=== PATIENT | female | born 1975 | race Caucasian/White ===

== ENCOUNTER 2023-07-17 18:50 | Emergency (ER) | payer OTHER, SELFPAY ==
[2023-07-17 18:59] VITALS: BP 163/90; PULSE 129; RESP 24; TEMP 37.2; O2SAT 98; BMI 34.9
--- NOTE | 2023-07-17 19:04 | XR_ITS ---
The [address] [address] Patient Name: LILIANA HUGHES MRN: [id number] date: 1975 Sex: F Assigned Patient Location: ER Current Patient Location: ER Accession/Order Number: [id number] Exam Date: 07/17/2023 19:30 Report Date: 07/17/2023 19:57 At the request of: RODNEY BULLOCK Procedure: XR femur LT 2V 4 views of the left femur INDICATION: Dog bite COMPARISON: None XR/XR femur LT 2V IMPRESSION: No acute fracture or dislocation. No periosteal reaction or erosive change. No radiopaque foreign bodies. Soft tissue swelling and subcutaneous emphysema along the posterior medial aspect of the mid to distal thigh in keeping with history of dog bite. Partially visualized regional joints are intact. Electronically authenticated by: ERICA MCCRAY Date: 07/17/2023 19:57
--- NOTE | 2023-07-17 19:06 | ED.ANIMALBI1 ---
HPI - Animal Bite General Chief Complaint: Animal Bite Stated Complaint: Dog Bite Time Seen by Provider: 07/17/23 19:00 Source: patient Mode of arrival: walk-in Limitations: no limitations History of Present Illness HPI narrative: Patient is a 48-year-old female Who presents to the emergency department Her dog bite to the left thigh. She states she was cleaning her daughter's room when her daughter's dog bit her on the medial/posterior thigh. She is ambulatory but has significant pain with movement of the left leg. Unknown last tetanus. She is not concerned for . No medications taken prior to arrival. Related Data Previous Rx's Medication Instructions Recorded amoxicillin 875 mg-potassium 1 tab PO Q12H #20 tabs 07/17/23 clavulanate 125 mg tablet ondansetron 4 mg disintegrating 4 mg PO Q6H PRN nausea and 07/17/23 tablet vomiting #12 tabs oxycodone-acetaminophen 5 mg-325 1 tab PO Q6H PRN pain 4 days #15 07/17/23 mg tablet (Percocet) tabs Allergies Allergy/AdvReac Type Severity Reaction Status Date / Time acetaminophen [From Vicodin] Allergy Severe Palpitation Verified 07/17/23 18:56 s hydrocodone [From Vicodin] Allergy Severe Palpitation Verified 07/17/23 18:56 s morphine Allergy Severe itchy Verified 07/17/23 18:56 Review of Systems ROS Constitutional Denies: fever or chills Ears, nose, mouth, and throat Denies: throat pain or nasal congestion Cardiovascular Denies: chest pain Respiratory Denies: shortness of breath or cough Gastrointestinal Denies: nausea or vomiting Musculoskeletal Reports: extremity pain and extremity swelling; Denies: back pain or neck pain Integumentary/Breast Denies: rash Hematologic/Lymphatic Denies: easy bruising or easy bleeding PFSH PFSH Social History Smoking status: Never smoker Exam Narrative Exam Narrative: Gen.: Awake, alert, in no distress Head: Normocephalic, atraumatic ENT: Moist mucous membranes Respiratory: No respiratory distress Extremities: Moves extremities equally, Dog bite as described below Psych: Normal mood and affect Neuro: No focal neuro deficit Skin: Warm, dry; Psoriatic rash noted to multiple extremities. Patient with a large dog bite to the left medial and posterior thigh. Multiple puncture wounds are noted medially. 2 larger lacerations noted posteriorly. Ecchymosis and hematoma noted to the medial thigh. Patient with 2+ DP pulses bilaterally. The area is diffusely tender to palpation on the thigh. She is able to flex and extend at the left hip and left knee. Constitutional Vital Signs, click to edit/add: Last Vital Signs Temp 99 F 07/17/23 18:59 Pulse 89 07/17/23 21:12 Resp 16 07/17/23 21:12 BP 163/90 H 07/17/23 18:59 Pulse Ox 97 07/17/23 21:12 O2 Del Method Room Air 07/17/23 21:12 Course Vital Signs Vital signs: Vital Signs Temperature 99 F 07/17/23 18:59 Pulse Rate 129 H 07/17/23 18:59 Respiratory Rate 24 07/17/23 18:59 Blood Pressure 163/90 H 07/17/23 18:59 Pulse Oximetry 98 07/17/23 18:59 Oxygen Delivery Method Room Air 07/17/23 18:59 Temperature 99 F 07/17/23 18:59 Pulse Rate 89 07/17/23 21:12 Respiratory Rate 16 07/17/23 21:12 Blood Pressure 163/90 H 07/17/23 18:59 Pulse Oximetry 97 07/17/23 21:12 Oxygen Delivery Method Room Air 07/17/23 21:12 MDM - Animal Bite MDM Narrative Medical decision making narrative: Patient treated with intramuscular Dilaudid and oral Zofran as well as Augmentin. Her tetanus was updated in the ER. Femur x-rays with no evidence of bony involvement or retained foreign body.Multiple puncture wounds diffusely over the medial and posterior thigh. The areas were cleansed, dressed with bacitracin and 2 lacerations to the posterior thigh were sutured. Please see procedure note for details. Patient with a hematoma noted to the left thigh. I strongly encouraged her to follow-up with orthopedics for reevaluation of the puncture wounds and the sutures. Patient was given an appointment with Dr. Poole for Saturday for orthopedics. She is referred to primary care as well. Augmentin, Percocet given for home. Laceration repair: Done under sterile conditions. The use of Shur-Clens prep the area. Local injection with lidocaine 1% with epi was used, approximately 12 cc. Each wound was irrigated copiously with normal saline. The wound was explored there was no evidence of foreign material. The laceration was approximated with 3-0 nylon. 3 simple interrupted sutures were made in the 2 cm smaller, proximal laceration and 5 simple interrupted sutures with 1 horizontal mattress suture were placed in the inferior laceration Patient tolerated the procedure well. The patient was neurovascularly intact post. the patient had bacitracin applied to the laceration and a dry sterile dressing was place. The patient will need to follow-up in the next 10-12 days for removal Medical Records Attestation: I reviewed the patient's medical records. Imaging Data XR femur: Attestation: I have reviewed the pertinent imaging results. Radiologist's impression: ITS Impressions Femur X-Ray 07/17/23 19:04 IMPRESSION: No acute fracture or dislocation. No periosteal reaction or erosive change. No radiopaque foreign bodies. Soft tissue swelling and subcutaneous emphysema along the posterior medial aspect of the mid to distal thigh in keeping with history of dog bite. Partially visualized regional joints are intact. Electronically authenticated by: ERICA MCCRAY Date: 07/17/2023 19:57 Discharge Plan Discharge Chief Complaint: Animal Bite Clinical Impression: Dog bite Patient Disposition: Home, Self-Care Time of Disposition Decision: 20:36 Condition: Good Prescriptions / Home Meds: New oxycodone-acetaminophen [Percocet] 5-325 mg tablet 1 tab PO Q6H PRN (Reason: pain) 4 Days Qty: 15 0RF Rx Instructions: DX: S81.852A amoxicillin-pot clavulanate 875-125 mg tablet 1 tab PO Q12H Qty: 20 0RF ondansetron 4 mg tablet,disintegrating 4 mg PO Q6H PRN (Reason: nausea and vomiting) Qty: 12 0RF Instructions: Animal Bite (ED) Additional Instructions: Sutures removed in 10-12 days Stand Alone Forms: Portal Instructions Referrals: Physician,Non-Staff, [Primary Care Provider] - 1 week Cy Poole MD [Physician] - 07/22/23 9:00 am Discharge Date/Time: 07/17/23 21:05
[2023-07-17] MEDS: ONDANSETRON 4 MG RAPDIS TABLET SL (19:24)
[2023-07-17] MEDS: HYDROMORPHONE HCL 1 MG/ML CARTRIDGE IM (19:25)
[2023-07-17] MEDS: ADACEL DIPH,PERTUSS(ACELL),TET VAC/PF 0.5 ML ADULT SYRINGE IM (19:29)
[2023-07-17] MEDS: AMOXICILLIN/POTASSIUM CLAV 1 TAB TABLET PO (19:30)
[2023-07-17] MEDS: LIDOCAINE HCL 1%-EPINEPHRINE 1:100,000 20 ML MDV INJ (19:53)
[2023-07-17] MEDS: BACITRACIN OINTMENT 28.4 GM TUBE 1 APPLIC TOPICAL (19:53)
[2023-07-17] MEDS: OXYCODONE HCL/ACETAMINOPHEN 5MG/325MG 3 TAB PO (20:59)
[2023-07-17 21:12] VITALS: PULSE 89; RESP 16; O2SAT 97
== END 2023-07-17 21:05 | disposition home or self-care (01) ==
PROVIDERS: Emergency Provider Emergency Medicine
DX: S71.152A Open bite, left thigh, initial encounter (principal); W54.0XXA Bitten by dog, initial encounter; Z23 Encounter for immunization
CPT/HCPCS: 12002; 73552; 90471; 90715; 96372; 99284; J1170

== ENCOUNTER 2023-07-30 09:48 | Outpatient (OUT) | payer OTHER, SELFPAY ==
[2023-07-30 10:15] LABS: Basophils Absolute Auto 0.1 10^3/uL (0.0-0.1); Basophils Percent Auto 0.7 % (0.2-2.0); Eosinophils Absolute Auto 0.1 10^3/uL (0.0-0.7); Eosinophils Percent Auto 0.8 % (0.9-7.0); Hemoglobin 13.5 g/dL (12.0-16.0); Immature Granulocytes Abs Auto 0.03 10^3/uL (0.00-0.03); Immature Granulocytes Pct Auto 0.3 % (0.0-0.5); Lymphocytes Absolute Auto 2.8 10^3/uL (1.2-3.8); Lymphocytes Percent Auto 29.8 % (20.5-60.0); Mean Corpuscular HGB Conc 32.1 g/dL (29.9-35.2); Mean Corpuscular Hemoglobin 30.3 pg (26.7-34.0); Mean Corpuscular Volume 94.2 fL (81.0-99.0); Mean Platelet Volume 9.6 fL (9.5-13.5); Monocytes Absolute Auto 0.8 10^3/uL (0.3-0.8); Monocytes Percent Auto 8.3 % (1.7-12.0); Neutrophils Absolute Auto 5.7 10^3/uL (1.4-6.5); Neutrophils Percent Auto 60.1 % (43.0-75.0); Platelet Count 382 10^3/uL (150-450); Red Blood Count 4.46 10^6/uL (4.20-5.40); Red Cell Distribution Width 13.6 % (11.0-15.0); White Blood Count 9.5 10^3/uL (4.0-11.0)
[2023-07-30 10:27] LABS: Alanine Aminotransferase 25 U/L (14-59); Albumin Globulin Ratio 0.9; Albumin Level 3.8 g/dL (3.4-5.0); Alkaline Phosphatase 98 U/L (46-116); Anion Gap 17.8; Aspartate Amino Transferase 11 U/L (15-37); BUN Creatinine Ratio 22.5; Bilirubin Total 0.3 mg/dL (0.2-1.0); Calcium 9.2 mg/dL (8.5-10.1); Carbon Dioxide 21.2 mmol/L (21.0-32.0); Chloride 106 mmol/L (98-107); Chol HDL Ratio 5.8; Cholesterol 234 mg/dL (<=200); Estimated GFR (African America >60 (>=60); Estimated GFR (Non-African Ame >60 (>=60); Globulin 4.1 g/dL; Glucose 101 mg/dL (74-106); HDL Cholesterol 40 mg/dL (40-60); Sodium 141 mmol/L (136-145); Total Protein 7.9 g/dL (6.4-8.2); Triglycerides 159 mg/dL (<=150); VLDL CHOLESTEROL 31.8 mg/dL
[2023-08-01 07:09] LABS: QuantiFERON-TB Gold Plus Negative (Negative)
== END 2023-07-30 09:49 | disposition home or self-care (01) ==
LOC: LAB 09:50
DX: Z79.899 Other long term (current) drug therapy (principal); L40.0 Psoriasis vulgaris
CPT/HCPCS: 36415; 80053; 80061; 85025; 86480

== ENCOUNTER 2023-08-13 15:59 | Outpatient (OUT) | payer OTHER, SELFPAY ==
--- NOTE | 2023-08-13 16:01 | US_ITS ---
The [address] [address] Patient Name: LILIANA HUGHES MRN: [id number] date: 1975 Sex: F Assigned Patient Location: US Current Patient Location: Accession/Order Number: [id number] Exam Date: 08/13/2023 16:07 Report Date: 08/14/2023 06:28 At the request of: IVANA BOSS Procedure: US venous doppler LE LT EXAMINATION: US venous doppler LE LT HISTORY: left leg swelling M79.89 COMPARISON: No relevant comparison available. FINDINGS: REGION: Left lower extremity THROMBI: None. COMPRESSIBILITY: Normal compressibility. FLOW: Normal waveform and antegrade flow between 5 and 20 cm/s. OTHER: Irregular geographic shaped fluid collection within distal medial thigh, 5.9 x 1.7 x 6.2 cm, without appreciable thickened mayberry or surrounding hypervascularity. US/US venous doppler LE LT IMPRESSION: 1. No deep vein thrombus within the left lower extremity. 2. Irregular fluid collection corresponding to patient's area of swelling. Appearance favors seroma or old hematoma. Abscess is less likely given the lack of thickened wall and lack of increased blood flow. Electronically authenticated by: IVANA HADLEY Date: 08/14/2023 06:28
== END 2023-08-13 16:00 | disposition home or self-care (01) ==
LOC: US 15:59
PROVIDERS: Visit Provider Orthopaedic Surgery
DX: M79.89 Other specified soft tissue disorders (principal)
CPT/HCPCS: 93971

== ENCOUNTER 2023-09-09 15:38 | Outpatient (OUT) | payer OTHER, SELFPAY ==
--- NOTE | 2023-09-09 15:41 | MR_ITS ---
[address] [address] Patient Name: LILIANA HUGHES MRN: [id number] date: 1975 Sex: F Assigned Patient Location: MRI Current Patient Location: MRI Accession/Order Number: [id number] Exam Date: 09/09/2023 15:50 Report Date: 09/09/2023 16:45 At the request of: SHAIKH SRAVANI Procedure: MR head/brain wo con MR head/brain wo con HISTORY: Chronic migraine with aura and status migrainosus G43.E01 COMPARISON: None. TECHNIQUE: Multi-planar, multi-sequence brain MRI was performed without IV contrast. FINDINGS: Brain volume: Normal. Sagittal midline structures: Normal. Ventricles: Normal. Acute ischemic changes: None. Hemorrhage: None. Masses/edema: None. Mcdonough-white: Negative. White matter: Normal. Vessels: Normal. Extra-axial: None. Calvarium/scalp: Negative. Skull base: Negative. Visualized sinuses/orbits: Negative. Visualized upper neck: Negative. MR/MR head/brain wo con IMPRESSION: 1. Normal examination. Electronically authenticated by: MARCIA LAURENT Date: 09/09/2023 16:45
== END 2023-09-09 15:39 | disposition home or self-care (01) ==
LOC: MRI 15:38
PROVIDERS: Visit Provider Internal Medicine
DX: G43.E01 Chronic migraine with aura, not intractable, with status migrainosus (principal)
CPT/HCPCS: 70551

== ENCOUNTER 2024-01-29 20:57 | Outpatient (REF) | payer OTHER, SELFPAY ==
--- OUTSIDE RECORDS SUMMARY | 2024-01-29 21:01 | XMS_ITS | CCD ---
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 technique was used, including Automated Exposure Control. FINDINGS: LUNG BASES: No visible pulmonary or pleural disease. LIVER: No enlargement, atrophy, abnormal density, or significant focal lesion. BILIARY: Surgical clips from cholecystectomy PANCREAS: No lesion, fluid collection, ductal dilatation, or atrophy. SPLEEN: No enlargement or focal lesion. ADRENALS: No mass or enlargement. KIDNEYS: No mass, obstruction, or calcification. BOWEL/MESENTERY: Surgical clips in the cecum from prior cholecystectomy. Nonobstructive bowel gas pattern. AORTA/VASCULAR: No aortic aneurysm or dissection. Mild atherosclerosis RETROPERITONEUM: No mass or adenopathy. LYMPH NODES: No adenopathy. URINARY BLADDER: No visible focal wall thickening, lesion, or calculus. PELVIC ORGANS: Hysterectomy ABDOMINAL WALL: 3.5 x 1.2 cm midline ventral hernia axial image 63 containing fat without strangulation BONES: No bony lesion or fracture. OTHER: Negative. IMPRESSION: No acute abnormality Electronically authenticated by: NELLY GUZMAN Date: 2022-05-04 15:54 Normal [facility] CBC With Platelet and Differ entialon 08-31-2017 Basophils Auto #/vol (Bld) 0.1 10*3/uL Normal 0.0-0.2 [facility] Basophils/100 WBC Auto (Bld) 1.3 % Normal [facility] Eosinophils 0.2 10*3/uL Normal 0.0-0.7 [facility] Eosinophils/100 leukocytes 2.1 % Normal [facility] Erythrocyte distribution width Auto Ratio (RBC) 13.8 % Normal 11.5-14.5 [facility] Erythrocytes (RBC) 4.60 10*6/uL Normal 4.20-5.40 [facility] Hematocrit (HCT) 42.1 % Normal 37.0-47.0 [facility] Hemoglobin mass conc (Bld) 14.5 g/dL Normal 12.0-16.0 [facility] Lymphocytes 4.4 10*3/uL Normal 1.0-4.8 [facility] Lymphocytes/100 leukocytes 39.8 % Normal [facility] MCH 31.5 pg Critically high 27.0-31.3 [facility] MCHC mass conc (RBC) 34.5 % Normal 33.0-37.0 [facility] MCV 91.5 fL Normal 82.0-100.0 [facility] Monocytes 0.9 10*3/uL Critically high 0.2-0.8 [facility] Monocytes/100 leukocytes 8.3 % Normal [facility] Neutrophils 5.3 10*3/uL Normal 1.4-6.5 [facility] Neutrophils/100 leukocytes 48.5 % Normal [facility] Platelets 314 10*3/uL Normal 130-400 [facility] WBC (Leukocytes) 11.0 10*3/uL Critically high 4.8-10.8 [facility] CT KIDNEY WO CONTRASTon 08-18 CT KIDNEY WO CONTRAST CT of the kidneys without intravenous contrast mediumHistory: Right left-sided nephrolithiasisTechnical Factors:CT imaging of the abdomen and pelvis were obtained and formatted as 5 mm contiguous axial images from the domes of the diaphragm to the symphysis pubis. Sagittal and coronal reconstructions were also obtained.Oral contrast medium: None.Intravenous contrast medium: None.Comparison: None.Findings:Lungs: Lung bases are clear.Liver: Normal in size and shape. 2.0 x 1.4 cm area of rounded decreased attenuation found anteriorly within the lateral segment of the left hepatic lobe, with Hounsfield measurement of 1.Bile Ducts: Normal in caliber. Gallbladder: Surgically absent.. Pancreas: Normal without masses, cysts, ductal dilatation or calcification. Spleen: Normal in size without masses. Punctate calcification. 2 splenules measuring up to 1.5 cm in size.Kidneys: Normal in size.. No hydronephrosis, masses, or stones. Adrenals: Normal. Small bowel: Normal in caliber. Appendix: Surgically absent.Colon: Normal in caliber. Peritoneum: No ascites, free air, or fluid collections. Surgical clips identified at level of proximal descending colon, and anteriorly within pelvis.Vessels: Aorta normal in course and caliber. Portal vein, splenic vein, superior mesenteric vein are patent. Lymph nodes: Retroperitoneal: No enlarged retroperitoneal lymph nodes. Mesenteric: No enlarged mesenteric lymph nodes. Pelvic: No enlarged pelvic lymph nodes. Ureters: Normal in course and caliber. No calcifications. Bladder: Partially decompressed.Reproductive organs: Uterus surgically absent.. Abdominal Wall: 2.4 cm fat-containing periumbilical abdominal wall defect.Bones: No bone lesions. Mild disc space narrowing L5-S1.No post operative changes. IMPRESSION: No renal/ureteral calculi. No hydronephrosis/hydroureter.Le ft hepatic cyst.Cholecystectomy.Appendec garcia.Hysterectomy.Periumbilic al hernia.All CT scans at this facility use dose modulation, iterative reconstruction, and/or weight based dosing when appropriate to reduce radiation dose to as low as reasonably achievable.Interpreted by:LAURA Merlosigned by:Sonny Tobar MD09/01/18Final result Normal [facility] Comprehensive Metabolic Pane binh 08-31-2017 Alanine aminotransferase (ALT) 14 U/L Normal 0-33 [facility] Albumin 4.6 g/dL Normal 3.9-4.9 [facility] Alkaline phosphatase (ALP) 109 U/L Normal 40-130 [facility] Anion gap 16 mmol/L Critically high 7-13 [facility] Aspartate aminotransferase (AST) 13 U/L Normal 0-35 [facility] Bilirubin (total) 0.1 mg/dL Normal 0.0-1.2 [facility] Calcium 8.9 mg/dL Normal 8.6-10.2 [facility] Chloride 101 mmol/L Normal 98-107 [facility] CO2 22 mmol/L Normal 22-29 [facility] Creatinine 0.67 mg/dL Normal 0.50-0.90 [facility] eGFR (black) mL/min/{1.73_m2} Normal >60 [facility] Comment on above: Result Comment: >60 mL/min/1.73m2 EGFR, calc. for ages 18 and older using theMDRD formula (not corrected for weight), is valid for stablerenal function. eGFR (MDRD) mL/min/{1.73_m2} Normal >60 [facility] Comment on above: Result Comment: >60 mL/min/1.73m2 EGFR, calc. for ages 18 and older using theMDRD formula (not corrected for weight), is valid for stablerenal function. Globulin 2.4 g/dL Normal 2.3-3.5 [facility] Glucose mass conc 115 mg/dL Critically high 74-109 [facility] Potassium molar conc 3.9 mmol/L Normal 3.5-5.1 [facility] Protein 7.0 g/dL Normal 6.4-8.1 [facility] Sodium 139 mmol/L Normal 132-144 [facility] Urea nitrogen 14 mg/dL Normal 6-20 [facility] Culture, Urineon 08-31-2017 Culture, Urine OR DERED BY: TAMMY BOWERS: Urine Clean Catch COLLECTED: 08/31/17 20:15ANTIBIOTICS AT LEANNA.: RECEIVED : 08/31/17 21:36Culture, Urine FINAL 09/02/17 09:18 No growth 24 hours Normal [facility] Urinalysis, reflex to cultur janie 08-31-2017 Bilirubin Ql (U) SMALL Abnormal Negative [facility] Urine Reflexed to Culture YES Normal [facility] Urine, clarity Clear Normal Clear [facility] Urine, color DENISE Abnormal Straw/[place] [facility] Urine, glucose presence Negative Normal Negative [facility] Urine, hemoglobin presence MODERATE Abnormal Negative [facility] Urine, ketones presence Negative Normal Negative [facility] Urine, leukocyte esterase presence Negative Normal Negative [facility] Urine, nitrite presence Negative Normal Negative [facility] Urine, pH 5.0 [pH] Normal 5.0-9.0 [facility] Urine, protein presence Negative Normal Negative [facility] Urine, specific gravity 1.034 Normal 1.005-1.03 [facility] Urine, urobilinogen 0.2 {Megan'U}/dL Normal < 2.0 [facility] Urine Microscopicon 09-01-19 18 Urine Mucous Present Normal [facility] Urine, bacteria in sediment Few Normal [facility] Urine, crystals in sediment Few Ca Oxalate Normal [facility] Urine, epithelial cells presence in sediment Few Normal [facility] Urine, erythrocytes 6-10 Normal 0-2 [facility] Urine, leukocytes 3-5 Normal 0-5 [facility] Encounters Encounter Date Encounter Type Care Provider Facility Start: 10-16-2023 End: 10-16-2023 ambulatory SHAIKH SRAVANI Not Available Start: 09-16-2023 End: 09-16-2023 ambulatory GIMENEZ FAWDANNIED Not Available Start: 09-02-2023 End: 04-15-2024 ambulatory GIMENEZ FAWWAD Not Available Start: 03-19-2023 End: 03-20-2023 ambulatory Roger Garcia [facility] Start: 01-07-2023 End: 01-07-2023 Emergency department patient visit NITIN ELIZABETH [facility] Start: 12-07-2022 End: 12-08-2022 ambulatory Roger Garcia Facility[facility] [place] [facility] Start: 08-06-2022 ambulatory Roger Garcia Facility:[facility] [place] Start: 07-25-2022 End: 07-26-[address] DOCTOR PINEDA Facility:[facility] Start: 05-15-2022 End: 05-15-[address] DUSTIN HERNANDEZ . Facility:[facility] Start: 05-04-2022 End: 05-05-[address] DUSTIN HERNANDEZ . Facility:[facility] Start: 12-08-[address] DUSTIN HERNANDEZ . Facil ity:[facility] Start: 08-31-2017 End: 09-01-2017 Emergency department patient visit SENA BOWERS [facility] Procedures Date Procedure Procedure Detail Performing Clinician Start: 09-01-2017 Ct abdomen w/o contr ast material SENA BOWERS Start: 08-31-2017 CBC WITH AUTO DIFFERENTIAL SENA BOWERS Start: 08-31-2017 COMPREHENSIVE METABOLIC PANEL SENA BOWERS Start: 08-31-2017 Microscopic urinalysis SENA BOWERS Start: 08-31-2017 URINE CULTURE SENA MACIAS RCHALL Start: 08-31-2017 URINE RT REFLEX TO CULTURE SENA BOWERS Payers Date Payer Category Payer Unknown [id number] 2.16.84 [id number] 1977 Unknown [id number] 2..84 [id number] 1977 Unknown [id number] .16.84 [id number] 1977 Unknown [id number] 2.16.84 [id number] 1977 Unknown [id number] 2.16.84 [id number] 1977 Unknown [id number] 2.16.8 [id number] 1977 Unknown [id number] 2.16.8 [id number] 1977 Unknown [id number] 2.16.8 [id number] 1977 Unknown [id number] 2.16.84 [id number] 1977 Unknown [id number] 2.16.84 [id number] 1977 Unknown [id number] 2.16.84 [id number] 1959 Self-pay [id number] 1957 Unknown [id number] Summary Purpose Family History No Family History Records FoundNo Family History Records FoundNo Family History Records FoundNo Family History Records FoundNo Family History Records Found Advance Directives No Advanced Directives Records FoundNo Advanced Directives Records FoundNo Advanced Directives Records FoundNo Advanced Directives Records FoundNo Advanced Directives Records Found Additional Source Comments INFORMATION SOURCE (unrecogn ized section and content) DATE CREATED AUTHOR 11/07/2017 [facility] DATE CREATED AUTHOR AUTHOR'S ORGANIZ ATION 07/28/2022 [facility] DATE CREATED AUTHOR AUTHOR'S ORGANIZ ATION 01/08/2023 [facility] DATE CREATED AUTHOR AUTHOR'S ORGANIZ ATION 03/22/2023 [facility] DATE CREATED AUTHOR AUTHOR'S ORGANIZ ATION 10/17/2023 [facility] EPIC FOR RECORDS PERTAINING TO PATIENTS WHO ARE OR HAVE BEEN ENROLLED IN A CHEMICAL DEPENDENCY/SUBSTANCEABUSE PROGRAM, SOME INFORMATION MAY BE OMITTED. This clinical summary was aggregated from multiple sources. Caution should be exercised in using it in the provision of clinical care. This summary normalizes information from multiple sources, and as a consequence, information in this document may materially change the coding, format and clinical context of patient data. In addition, data may be omitted in some cases. CLINICAL DECISIONS SHOULD BE BASED ON THE PRIMARY CLINICAL RECORDS. [facility] [employer] [facility] provides no warranty or guarantee of the accuracy or completeness of information in this document.
== END 2024-01-29 20:58 | disposition home or self-care (01) ==
LOC: LAB 20:57
DX: Z79.899 Other long term (current) drug therapy (principal)
CPT/HCPCS: 80326; 80331; 80334; 80337; 80338; 80341; 80344; 80346; 80348; 80353; 80354; 80355; 80357; 80358; 80359; 80360; 80361; 80364; 80365; 80366; 80367; 80368; 80370; 80371; 80372; 80373; 80377; 82570; 83992

== ENCOUNTER 2024-06-29 16:57 | Emergency (ER) | payer OTHER, SELFPAY ==
[2024-06-29 17:05] VITALS: PULSE 87; TEMP 36.6; O2SAT 96; BMI 28.3
--- OUTSIDE RECORDS SUMMARY | 2024-06-29 17:15 | XMS_ITS | CCD ---
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 Role Phone SENA BOWERS Unavailable Unavailable [...] LASSITER Attending Unavailable SHAIKH LASSITER Attending Unavailable MYRNA WOOTEN Attending UnavailClint England MD Primary Care Provider Myrna Wooten NP Unavailable Allergies Allergy Classification Reported Allergen(s) Allergy Type Date of Onset Reaction(s) Facility (2 sources) Acetaminophen / HYDROcodone; Translations: [Vicodin] Drug Allergy 3 The [facility] Repository (1 source) Amoxicillin; Translations: [amoxicillin] Drug Allergy [facility] Repository (1 source) Methocarbamol; Translations: [Robaxin] Drug Allergy [facility] Repository (5 sources) Morphine; Translations: [morphine] Drug Allergy 8 Itching, Nausea And Vomiting, Rash [facility] Repository (4 sources) Acetaminophen / HYDROcodone Drug Allergy 4 Rash [facility] Work Phone: Medications Current Medications Medication Drug Class(es) Dates Sig (Normalized) Sig (Original) amphetamine aspartate 3.75 mg / amphetamine sulfate 3.75 mg / dextroamphetamine saccharate 3.75 mg / dextroamphetamine sulfate 3.75 mg oral tablet (4 sources) Central Nervous System Stimulant Start: 4 take 1 tablet by mouth in the morning amphetamine-dextroam phetamine (Adderall) 15 MG tablet Indications: Attention deficit hyperactivity disorder (ADHD), combined type (CMS/HCC) Take 1 tablet (15 mg) by mouth in the morning and 1 tablet (15 mg) before bedtime. 60 tablet 12/23/2023 Active atenolol 50 mg oral tablet (4 sources) beta-Adrenergic Delroy Start: 4 End: 4 take 1 tablet by mouth once daily atenolol (Tenormin) 50 MG tablet Indications: Chronic migraine with aura and with status migrainosus, not intractable (CMS/HCC) Take 1 tablet (50 mg) by mouth Daily 90 tablet 11/19/2023 02/17/2024 Active loratadine 10 mg oral tablet (6 sources) Start: 4 End: 4 take 1 tablet by mouth once daily loratadine (Claritin) 10 MG tablet Indications: Seasonal allergies Take 1 tablet (10 mg) by mouth Daily 90 tablet 01/29/2024 04/28/2024 Active pantoprazole 40 mg delayed release oral tablet (4 sources) Proton Pump Inhibitor Start: 4 End: 4 take 1 tablet by mouth before mealtime pantoprazole (ProtoNix) 40 MG EC tablet Indications: Gastroesophageal reflux disease without esophagitis Take 1 tablet (40 mg) by mouth in the morning. Take before meals. Do not crush, chew, or split.. 90 tablet 12/02/2023 03/01/2024 Active 1 ml secukinumab 150 mg/ml auto-injector (4 sources) Interleukin-17A Antagonist Start: 3 Cosentyx Sensoready, 300 MG, 150 MG/ML solution auto-injector Inject 300 mg under the skin every 30 (thirty) days 01/23/2023 Active SUMAtriptan 100 mg oral tablet (4 sources) Serotonin-1b and Serotonin-1d Receptor Agonist Start: 4 take 1 tablet by mouth once SUMAtriptan (Imitrex) 100 MG tablet Indications: Chronic migraine with aura and with status migrainosus, not intractable (CMS/HCC) Take 1 tablet (100 mg) by mouth 1 (one) time if needed for migraine 9 tablet 1 10/16/2023 Active triamcinolone acetonide 0.001 mg/mg topical ointment (4 sources) Corticosteroid Start: 4 triamcinolone (Kenalog) 0.1 % ointment Apply 1 application topically in the morning and 1 application before bedtime. 07/26/2023 Active Completed/Discontinued Medications Medication Drug Class(es) Dates Sig (Normalized) Sig (Original) divalproex sodium 250 mg delayed release oral tablet (3 sources) Mood Stabilizer, Anti-epileptic Agent Start: 10-16-2023 End: 04-13-2024 take 1 tablet by mouth in the morning divalproex (Depakote) 250 MG EC tablet Indications: Chronic migraine with aura and with status migrainosus, not intractable (CMS/HCC) Take 1 tablet (250 mg) by mouth in the morning and 1 tablet (250 mg) before bedtime. Do not crush, chew, or split.. 180 tablet 1 10/16/2023 01/29/2024 Discontinued (Side effects) Problems Active Problems Problem Classification Problem Date Documented Da te Episodic/Chronic Abdominal pain (5 sources) Unspecified abdominal pain; Translations: [Unspecified abdominal pain] Onset: 8 Episodic Anxiety disorders (6 sources) Generalized anxiety disorder; Translations: [Generalized anxiety disorder] Onset: 4 01-28-2024 Chronic Attention-deficit, conduct, and disruptive behavior disorders (6 sources) Attention deficit hyperactivity disorder, combined type; Translations: [Attention-deficit hyperactivity disorder, combined type] Onset: 4 01-28-2024 Chronic Disorders of lipid metabolism (4 sources) Hyperlipidemia; Translations: [Other hyperlipidemia] Onset: 4 09-02-2023 Chronic Esophageal disorders (6 sources) Gastroesophageal reflux disease without esophagitis; Translations: [Gastro-esophageal reflux disease without esophagitis] Onset: 4 01-28-2024 Chronic Essential hypertension (6 sources) Essential hypertension; Translations: [Essential (primary) hypertension] Onset: 4 01-28-2024 Chronic Fever of unknown origin (4 sources) Fever, unspecified; Translations: [FEVER UNSPECIFIED] Onset: 2 Episodic Genitourinary symptoms and ill-defined conditions (1 source) Hematuria, unspecified; Translations: [Hematuria, unspecified] Onset: 8 Episodic Headache; including migraine (6 sources) Transformed migraine; Translations: [Chronic migraine with aura and with status migrainosus, not intractable (CMS/HCC)] Onset: 4 01-28-2024 Chronic Other gastrointestinal disorders (1 source) Splenomegaly, not elsewhere classified; Translations: [SPLENOMEGALY NEC] Onset: 2 Episodic Other inflammatory condition of skin (1 source) Psoriasis vulgaris; Translations: [PSORIASIS VULGARIS] Onset: 3 Chronic Other inflammatory condition of skin (4 sources) Psoriatic arthritis; Translations: [Arthropathic psoriasis, unspecified] Onset: 3 09-02-2023 Chronic Other inflammatory condition of skin (4 sources) Psoriasis; Translations: [Psoriasis, unspecified] Onset: 3 09-02-2023 Chronic Other upper respiratory disease (6 sources) Seasonal allergy; Translations: [Other seasonal allergic rhinitis] Onset: 4 01-29-2024 Chronic Residual codes; unclassified (1 source) Pain, unspecified; Translations: [PAIN UNSPECIFIED] Onset: 2 Episodic Spondylosis; intervertebral disc disorders; other back problems (4 sources) Spondylosis without myelopathy; Translations: [Spondylosis without myelopathy or radiculopathy, site unspecified] Onset: 3 09-02-2023 Chronic Spondylosis; intervertebral disc disorders; other back problems (1 source) Dorsalgia, unspecified; Translations: [Dorsalgia, unspecified] Onset: 8 Episodic Superficial injury; contusion (1 source) Contusion of right front wall of thorax, initial encounter; Translations: [Contusion of right front wall of thorax, initial encounter] Onset: 3 Episodic Past or Other Problems Problem Classification Problem Date Documented Da te Episodic/Chronic Administrative/social admission (6 sources) Patient encounter status; Translations: [Persons encountering health services in other specified circumstances] Onset: 09-02-2023 09-02-2023 Episodic Results Test Name Value Interpretation Reference Range Facility COMPLIANCE DRUG ANALYSIS, UR on 02-07-2024 SUMMARY REPORT (SUMMARY) FINAL . [facility] Comment on above: ======= TOXASSURE COMP DRUG ANALYSIS,UR ======= Test Result Flag Units Drug Present Methamphetamine >1520 ng/mg creat Amphetamine 2102 ng/mg creat Sources of methamphetamine include illicit sources, as a scheduled prescription medication, as a metabolite of some prescription drugs, or use of an l-methamphetamine inhaler. Amphetamine is an expected metabolite of methamphetamine. Amphetamine is also available as a schedule II prescription drug. Acetaminophen PRESENT Salicylate PRESENT Diphenhydramine PRESENT Atenolol PRESENT ======= Test Result Flag Units Ref Range Creatinine 329 mg/dL >=20 ======= Declared Medications: Medication list was not provided. ======= For clinical consultation, please call . ======= Performed at: [facility] [address] [place] [address] [phone] Miter Operator: Daylin Felipe [facility], Phone: [phone] Specimen Comment: ToxAssure, ToxAssure FLEX or MAT drug testin Specimen Comment: -Technical component - Data analysis performed at Specimen Comment: [facility], [address] [place] [address] Specimen Comment: [id number]. [phone] Miter Operator Bart Malloy MD. [facility] Drugs of abuse panel Screen (U)on 01-29-2024 Amphetamines Ql (U) P [facility] Barbiturates Ql (U) N [facility] Benzodiazepines Ql (U) N [facility] Benzoylecgonine Ql (U) N [facility] Carboxy tetrahydrocannabinol (Mec) [Mass/Mass] N [facility] Interpretation and review of laboratory results Normal [facility] Methadone (U) [Mass/Vol] N [facility] Methylenedioxymethamphet amine Screen Ql (U) N [facility] Morphine (U) [Mass/Vol] N [facility] Opiates Ql (U) N [facility] oxyCODONE Ql (U) N [facility] Phencyclidine Ql (U) N [facility] Reference Lab Test ID N [facility] Tricyclic antidepressants [Mass/Vol] N [facility] Family Medicine Office/Clini c Noteon 03-21-2023 Family Medicine Office/Clinic Note [facility] Staff Jossie is a 48 [facility] Care: History:psoriasis,bipolar ,fibromyalgia, anxiety Last provider: Mary Any recent labs: [...] is a 48-year-old [facility]. She is accompanied by her mother. [...] her condition. She attempted to contact Dr. Garcia?s office but received no response. She expresses [...] time. She recalls seeing a neurologist in [place] approximately 8 to 9 years ago, where [...] suicidal af (more content not included)... Normal [facility] Comment on above: Result Comment: Elec tronically Signed By: Roger Garcia MD\.br\Date and Time Signed: 03/21/23 10:11 [...] solution) Procedures Performed Colonoscopy (05/20/2013), EGD - Esophagogastroduodenoscop y (04/10/2013), Laparoscopic cholecystectomy (04/10/2013), Colonoscopy (06/26/2006), MARIZOL [...] for choosing us for your care. Normal [facility] XR RIBS RIGHT INCLUDE CHEST (MIN 3 VIEWS)on 01-07-2023 XR RIBS RIGHT INCLUDE CHEST (MIN 3 VIEWS) EXAMINATION: 6 XRAY VIEWS OF THE RIGHT RIBS WITH FRONTAL XRAY VIEW OF THE CHEST 01/07/2023 6:14 pm COMPARISON: None. 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 The lungs are otherwise clear. Normal cardiomediastinal silhouette. No pleural effusion or pneumothorax. No acute osseous abnormality. Surgical clips in the right upper quadrant. IMPRESSION: No acute abnormality Interpreted by: Philip Doss DO Signed by: Philip Doss DO 01/07/23 Final result Normal [facility] [id number] Normal [facility] QUANTIFERON TB GOLD PLUSon 0 07-27-2022 QuantiFERON Criteria Comment Normal [facility] Comment on above: Result Comment: Tristan tiFERON-TB [...] test. Performed By: #### Q NTTB #### [facility] [address] [place] [address] Dr. Lennie Be QuantiFERON Incubation Incubation performed. Normal [facility] Comment on above: Performed By: #### Q NTTB #### [facility] [address] [place] [address] Dr. Lennie Be QuantiFERON Mitogen Value >10.00 Normal [facility] Comment on above: Performed By: #### Q NTTB #### [facility] [address] [place] [address] Dr. Lennie Be QuantiFERON Nil Value 0.02 IU/mL Normal [facility] Comment on above: Performed By: #### Q NTTB #### [facility] [address] [place] [address] Dr. Lennie Be QuantiFERON TB1 Ag Value 0.01 IU/mL Normal [facility] Comment on above: Performed By: #### Q NTTB #### [facility] [address] [place] [address] Dr. Lennie Be QuantiFERON TB2 Ag Value 0.02 IU/mL Normal [facility] Comment on above: Performed By: #### Q NTTB #### [facility] [address] [place] [address] Dr. Lennie Be QuantiFERON-TB Gold Plus Negative Normal Negative [facility] Comment on above: Result Comment: No r esponse to M tuberculosis antigens detected. Infection with M tuberculosis is unlikely, but high risk individuals should be considered for additional testing (ATS/IDSA/CDC Clinical Practice Guidelines, 2017). The reference range is an Antigen minus Nil result of <0.35 IU/mL. Chemiluminescence immunoassay methodology Performed By: #### Q NTTB #### [facility] [address] [place] [address] Dr. Lennie Be CBC AUTO DIFFon 07-25-2022 BASO # 0.0 103/ul Normal 0.0-0.1 [facility] Comment on above: Performed By: #### C BC #### [facility] [address] [place] [address] Dr. Lennie Be Basophils/100 WBC (Bld) 0.4 % Normal 0.2-2.0 T [facility] Comment on above: Performed By: #### C BC #### [facility] [address] [place] [address] Dr. Lennie Be EO # 0.1 103/ul Normal 0.0-0.7 [facility] Comment on above: Performed By: #### C BC #### [facility] [address] [place] [address] Dr. Lennie Be Eosinophils/100 WBC (Bld) 1.5 % Normal 0.9-7.0 [facility] Comment on above: Performed By: #### C BC #### [facility] [address] [place] [address] Dr. Lennie Be Erythrocyte distribution width (RBC) [Ratio] 13.5 % Normal 11.0-15.0 [facility] Comment on above: Performed By: #### C BC #### [facility] [address] [place] [address] Dr. Lennie Be Hematocrit (Bld) [Volume fraction] 40.7 % Normal 36.0-48.0 [facility] Comment on above: Performed By: #### C BC #### [facility] [address] [place] [address] Dr. Lennie Be Hemoglobin (Bld) [Mass/Vol] 13.4 g/dL Normal 12.0-16.0 [facility] Comment on above: Performed By: #### C BC #### [facility] [address] [place] [address] Dr. Lennie Be IG # 0.02 10e3/ul Normal 0.00-0.03 [facility] Comment on above: Performed By: #### C BC #### [facility] [address] [place] [address] Dr. Lennie Be IG % 0.3 % Normal 0.0-0.5 [facility] Comment on above: Performed By: #### C BC #### [facility] [address] [place] [address] Dr. Lennie Be LYMPH # 2.1 103/ul Normal 1.2-3.8 [facility] Comment on above: Performed By: #### C BC #### [facility] [address] [place] [address] Dr. Lennie Be Lymphocytes/100 WBC (Bld) 26.8 % Normal 20.5-60.0 [facility] Comment on above: Performed By: #### C BC #### [facility] [address] [place] [address] Dr. Lennie Be MANUAL DIFF REQ NO Normal [facility] Comment on above: Performed By: #### C BC #### [facility] [address] [place] [address] Dr. Lennie Be MCH (RBC) [Entitic mass] 30.1 pg Normal 26.7-34.0 [facility] Comment on above: Performed By: #### C BC #### [facility] [address] [place] [address] Dr. Lennie Be MCHC (RBC) [Mass/Vol] 32.9 g/dL Normal 29.9-35.2 [facility] Comment on above: Performed By: #### C BC #### [facility] [address] [place] [address] Dr. Lennie Be MCV (RBC) [Entitic vol] 91.5 fL Normal 81.0-99.0 [facility] Comment on above: Performed By: #### C BC #### [facility] [address] [place] [address] Dr. Lennie Be MONO # 0.6 103/ul Normal 0.3-0.8 [facility] Comment on above: Performed By: #### C BC #### [facility] [address] [place] [address] Dr. Lennie Be Monocytes/100 WBC (Bld) 7.4 % Normal 1.7-12.0 [facility] Comment on above: Performed By: #### C BC #### [facility] [address] [place] [address] Dr. Lennie Be NEUT # 5.0 103/ul Normal 1.4-6.5 [facility] Comment on above: Performed By: #### C BC #### [facility] [address] [place] [address] Dr. Lennie Be Neutrophils/100 WBC (Bld) 63.6 % Normal 43.0-75.0 [facility] Comment on above: Performed By: #### C BC #### [facility] [address] [place] [address] Dr. Lennie Be Platelet mean volume (Bld) [Entitic vol] 9.4 fL Critically low 9.5-13.5 [facility] Comment on above: Performed By: #### C BC #### [facility] [address] [place] [address] Dr. Lennie Be PLT 298 103/ul Normal 150-450 [facility] Comment on above: Performed By: #### C BC #### [facility] [address] [place] [address] Dr. Lennie Be RBC 4.45 106/ul Normal 4.20-5.40 [facility] Comment on above: Performed By: #### C BC #### [facility] [address] [place] [address] Dr. Lennie Be WBC 7.8 103/ul Normal 4.0-11.0 [facility] Comment on above: Performed By: #### C BC #### [facility] [address] [place] [address] Dr. Lennie Be LIPID PROFILEon 07-25-2022 CHOL-HDL RATIO NORM SEE BELOW Normal [facility] Comment on above: Result Comment: 3.3 - 4.4 LOW RISK 4.4 - 7.1 AVERAGE RISK 7.1 - 11.0 MODERATE RISK >11.0 HIGH RISK Performed By: #### L IPID, CMP #### [facility] [address] [place] [address] Dr. Lennie Be Cholesterol [Mass/Vol] 272 mg/dL Critically high <=200 [facility] Comment on above: Performed By: #### L IPID, CMP #### [facility] [address] [place] [address] Dr. Lennie Be Cholesterol in HDL [Mass/Vol] 42 mg/dL Normal 40-60 [facility] Comment on above: Performed By: #### L IPID, CMP #### [facility] [address] [address] [address] Lennie Be Cholesterol in LDL [Mass/Vol] 198.0 mg/dL Normal [facility] Comment on above: Performed By: #### L IPID, CMP #### [facility] [address] [address] [address] Lennie Be Cholesterol.total/Choles terol in HDL [Mass ratio] 6.5 {ratio} Normal [facility] Comment on above: Performed By: #### L IPID, CMP #### [facility] [address] [place] [address] Dr. Lennie Be HDL NORMAL > or = 60 mg/dl - LO W CARDIOVASCULAR RISK <40 mg/dl - HIGH CARDIOVASCULAR RISK Normal [facility] Comment on above: Performed By: #### L IPID, CMP #### [facility] [address] [place] [address] Dr. Lennie Be LDL CALC NORMAL SEE BELOW Normal [facility] Comment on above: Result Comment: <100 mg/dl OPTIMAL 100 - 129 mg/dl NEAR OR ABOVE OPTIMAL 130 - 159 mg/dl BORDERLINE HIGH 160 - 189 mg/dl HIGH >190 mg/dl VERY HIGH Performed By: #### L IPID, CMP #### [facility] [address] [place] [address] Dr. Lennie Be Triglyceride [Mass/Vol] 160 mg/dL Critically high <=150 [facility] Comment on above: Performed By: #### L IPID, CMP #### [facility] [address] [place] [address] Dr. Lennie Be VLDL CALC 32.0 mg/dL Normal [facility] Comment on above: Performed By: #### L IPID, CMP #### [facility] [address] [place] [address] Dr. Lennie Be PROF 14(COMP METB)on 023 Albumin [Mass/Vol] 4.0 g/dL Normal 3.4-5.0 [facility] Comment on above: Performed By: #### L IPID, CMP #### [facility] [address] [address] [address] Lennie Be Albumin/Globulin [Mass ratio] 1.1 {ratio} Normal [facility] Comment on above: Performed By: #### L IPID, CMP #### [facility] [address] [address] [address] Lennie Be ALP [Catalytic activity/Vol] 97 U/L Normal 46-116 [facility] Comment on above: Performed By: #### L IPID, CMP #### [facility] [address] [address] [address] Lennie Be ALT [Catalytic activity/Vol] 34 U/L Normal 14-59 [facility] Comment on above: Performed By: #### L IPID, CMP #### [facility] [address] [address] [address] Lennie Be Anion gap [Moles/Vol] 13.4 mmol/L Normal [facility] Comment on above: Performed By: #### L IPID, CMP #### [facility] [address] [address] [address] Lennie Be AST [Catalytic activity/Vol] 21 U/L Normal 15-37 [facility] Comment on above: Performed By: #### L IPID, CMP #### [facility] [address] [address] [address] Lennie Be Bilirubin [Mass/Vol] 0.2 mg/dL Normal 0.2-1.0 [facility] Comment on above: Performed By: #### L IPID, CMP #### [facility] [address] [address] [address] Lennie Be Calcium [Mass/Vol] 9.2 mg/dL Normal 8.5-10.1 [facility] Comment on above: Performed By: #### L IPID, CMP #### [facility] [address] [address] [address] Lennie Be Chloride [Moles/Vol] 106 mmol/L Normal 98-107 [facility] Comment on above: Performed By: #### L IPID, CMP #### [facility] [address] [address] [address] Lennie Be CO2 [Moles/Vol] 24.4 mmol/L Normal 21.0-32.0 [facility] Comment on above: Performed By: #### L IPID, CMP #### [facility] [address] [place] [address] Dr. Lennie Be Creatinine [Mass/Vol] 0.69 mg/dL Normal 0.55-1.02 [facility] Comment on above: Performed By: #### L IPID, CMP #### [facility] [address] [place] [address] Dr. Lennie Be EGFR-AF TAIWANESE >60 Normal >=60 [facility] Comment on above: Performed By: #### L IPID, CMP #### [facility] [address] [place] [address] Dr. Lennie Be EGFR-NON AF TAIWANESE >60 Normal >=60 [facility] Comment on above: Performed By: #### L IPID, CMP #### [facility] [address] [place] [address] Dr. Lennie Be Globulin (S) [Mass/Vol] 3.5 g/dL Normal T [facility] Comment on above: Performed By: #### L IPID, CMP #### [facility] [address] [place] [address] Dr. Lennie Be Glucose [Mass/Vol] 98 mg/dL Normal 74-106 [facility] Comment on above: Performed By: #### L IPID, CMP #### [facility] [address] [place] [address] Dr. Lennie Be Potassium [Moles/Vol] 3.8 mmol/L Normal 3.5-5.1 [facility] Comment on above: Performed By: #### L IPID, CMP #### [facility] [address] [place] [address] Dr. Lennie Be Protein [Mass/Vol] 7.5 g/dL Normal 6.4-8.2 [facility] Comment on above: Performed By: #### L IPID, CMP #### [facility] [address] [address] [address] Lennie Be Sodium [Moles/Vol] 140 mmol/L Normal 136-145 [facility] Comment on above: Performed By: #### L IPID, CMP #### [facility] [address] [place] [address] Dr. Lennie Be Urea nitrogen [Mass/Vol] 10.0 mg/dL Normal 7.0-18.0 [facility] Comment on above: Performed By: #### L IPID, CMP #### [facility] [address] [place] [address] Dr. Lennie Be Urea nitrogen/Creatinine [Mass ratio] 14.5 mg/mg Normal [facility] Comment on above: Performed By: #### L IPID, CMP #### [facility] [address] [place] [address] Dr. Lennie Be XR ABD FLAT_UPon 07-25-2022 XR ABD FLAT_UP EXAMINATION: XR ABD FLAT_UP HISTORY: Abdominal pain COMPARISON: No relevant comparison available. FINDINGS: BOWEL GAS PATTERN: Non-obstructed. FREE AIR: None. CALCIFICATIONS: None significant. BONES: No fracture or visible bone lesion. OTHER: Surgical clips IMPRESSION: Nonobstructive bowel gas pattern Electronically authenticated by: NELLY GUZMAN Date: 2022-07-25 10:41 Normal The [facility] INFLUENZA A AND B AGon 05[facility] Normal The [facility] Comment on above: Result Comment: Nega tive for Flu A protein angiten. Infection due to Flu A cannot be ruled out. Flu A angiten in the sample may be below the detection limit of the test. Performed By: #### I NFLUAB #### [facility] [address] [place] [address] Dr. Lennie [facility] SEE BELOW Normal The [facility] Comment on above: Result Comment: Nega tive for Flu B protein antigen. Infection due to Flu B cannot be ruled out. Flu B antigen in the sample may be below the detection limit of the test. Performed By: #### I NFLUAB #### [facility] [address] [place] [address] Dr. Lennie Be INFLUENZA A AG Negative Normal NEGATIVE SEE COMMENT The [facility] Comment on above: Performed By: #### I NFLUAB #### [facility] [address] [place] [address] Dr. Lennie Be INFLUENZA B AG Negative Normal NEGATIVE SEE COMMENT The [facility] Comment on above: Performed By: #### I NFLUAB #### [facility] [address] [place] [address] Dr. Lennie Be INTERNAL CONTROLS Within Normal Limits Normal Wi thin Normal Limits The [facility] Comment on above: Performed By: #### I NFLUAB #### [facility] [address] [place] [address] ABD/PELV W CONon [...] NELLY GUZMAN Date: 2022-05-04 15:54 Normal The [facility] CBC With Platelet and Differ entialon 08-31-2017 Basophils Auto #/vol (Bld) 0.1 10*3/uL Normal 0.0-0.2 [facility] Basophils/100 WBC Auto (Bld) 1.3 % Normal [facility] Eosinophils 0.2 10*3/uL Normal 0.0-0.7 [facility] Eosinophils/100 leukocytes 2.1 % Normal [facility] Erythrocyte distribution width Auto Ratio (RBC) 13.8 % Normal 11.5-14.5 [facility] Erythrocytes (RBC) 4.60 10*6/uL Normal 4.20-5.40 [facility] Hematocrit (HCT) 42.1 % Normal 37.0-47.0 [facility] Hemoglobin mass conc (Bld) 14.5 g/dL Normal 12.0-16.0 [facility] Lymphocytes 4.4 10*3/uL Normal 1.0-4.8 [facility] Lymphocytes/100 leukocytes 39.8 % Normal [facility] MCH 31.5 pg Critically high 27.0-31.3 [facility] MCHC mass conc (RBC) 34.5 % Normal 33.0-37.0 [facility] MCV 91.5 fL Normal 82.0-100.0 [facility] Monocytes 0.9 10*3/uL Critically high 0.2-0.8 [facility] Monocytes/100 leukocytes 8.3 % Normal [facility] Neutrophils 5.3 10*3/uL Normal 1.4-6.5 [facility] Neutrophils/100 leukocytes 48.5 % Normal [facility] Platelets 314 10*3/uL Normal 130-400 [facility] WBC (Leukocytes) 11.0 10*3/uL Critically high 4.8-10.8 [facility] CT KIDNEY WO CONTRASTon 08-18 CT KIDNEY [...] operative changes. IMPRESSION: No renal/ureteral calculi. No hydronephrosis/hydrourete r.Left hepatic cyst.Cholecystectomy.Appe ndectomy.Hysterectomy.Per iumbilical hernia.All CT scans at this facility use dose modulation, iterative reconstruction, and/or weight based dosing when appropriate to reduce radiation dose to as low as reasonably achievable.Interpreted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 Primary Unspecified essential hypertension Gastroesophageal reflux disease without esophagitis Esophageal reflux Attention deficit hyperactivity disorder (ADHD), combined type ([facility]) DIOGENES (generalized anxiety disorder) ([facility]) Generalized anxiety disorder Chronic migraine with aura and with status migrainosus, not intractable ([facility]) Seasonal allergies Allergic rhinitis, cause unspecified Encounter for wellness examination in adult Encounter for long-term (current) use of medications Encounter for long-term (current) use of other medications documented in this encounter [facility] Reason for referral (narrative) Consultation (Routine) - Authorized Note Date & Type Note Facility Reason for referral (narrati ve) Specialty Diagnoses / Procedures Referred By Contac t Referred To Contact Psychiatry / Behavioral Health Diagnoses Attention deficit hyperactivity disorder (ADHD), combined type ([facility]) DIOGENES (generalized anxiety disorder) ([facility]) Procedures OR OFFICE/OUTPATIENT NEW HIGH MDM 60 MINUTES Myrna Wooten NP [address] [place] [address] Jody Rowe, SUPERVISOR VENEER-WORKFLOW DEVELOPER [address] [place] [address] Referral ID Status Reason Start Date Expiration Date Visits Requested Visits Authorized [id number] Authorized Specialty Services Required 01/29/2024 07/27/2024 1 1 [facility] Summary Purpose Family History No Family History Records FoundNo Family History Records FoundNo Family History Records FoundNo Family History Records FoundNo Family History Records Found Advance Directives No Advanced Directives Records FoundNo Advanced Directives Records FoundNo Advanced Directives Records FoundNo Advanced Directives Records FoundNo Advanced Directives Records Found Additional Source Comments INFORMATION SOURCE (unrecogn ized section and content) DATE CREATED AUTHOR 11/07/2017 [facility] DATE CREATED AUTHOR AUTHOR'S ORGANIZ ATION 07/28/2022 [facility] DATE CREATED AUTHOR AUTHOR'S ORGANIZ ATION 01/08/2023 [facility] DATE CREATED AUTHOR AUTHOR'S ORGANIZ ATION 03/22/2023 Wong Bandar [facility] DATE CREATED AUTHOR AUTHOR'S ORGANIZ ATION 01/31/2024 [facility] Reason for Visit (unrecogniz ed section and content) Reason Comments Follow-up Headache Care Teams (unrecognized sec tion and content) 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 Ironworker Helper Relationship Specialty Start Date End Date Clint Peters MD [address] [place] [address] PCP - General Family Medicine 12/23/23 Myrna Wooten NP [address] [phone] Nurse Practitioner Family Medicine 12/23/23 Ornamental Ironworker Helper Relationship Specialty Start Date End Date Clint Peters MD [address] [place] [address] PCP - General Family Medicine 12/23/23 Myrna Wooten NP [address] [address] Nurse Practitioner Family Medicine 12/23/23 Ornamental Ironworker Helper Relationship Specialty Start Date End Date Clint Peters MD [address] [place] [id number] PCP - General Family Medicine 12/23/23 Myrna Wooten NP [address] [address] Nurse Practitioner Family [facility] 12/23/23 FOR RECORDS PERTAINING TO PATIENTS WHO ARE [...] BE BASED ON THE PRIMARY CLINICAL RECORDS. [facility]. provides no warranty or guarantee of the accuracy or completeness of information in this document.
== END 2024-06-29 17:31 | disposition left against medical advice (07) ==
PROVIDERS: Emergency Provider Emergency Medicine
DX: Z53.21 Procedure and treatment not carried out due to patient leaving prior to being seen by health care provider (principal); S71.131A Puncture wound without foreign body, right thigh, initial encounter; W54.0XXA Bitten by dog, initial encounter
CPT/HCPCS: 99281

== ENCOUNTER 2024-09-16 15:32 | Outpatient (OUT) | payer OTHER, SELFPAY ==
[2024-09-16 15:55] LABS: Basophils Absolute Auto 0.1 10^3/uL (0.0-0.1); Basophils Percent Auto 0.7 % (0.2-2.0); Eosinophils Absolute Auto 0.2 10^3/uL (0.0-0.7); Eosinophils Percent Auto 1.8 % (0.9-7.0); Hematocrit 39.8 % (36.0-48.0); Hemoglobin 12.6 g/dL (12.0-16.0); Immature Granulocytes Abs Auto 0.05 10^3/uL (0.00-0.03); Immature Granulocytes Pct Auto 0.5 % (0.0-0.5); Lymphocytes Absolute Auto 2.4 10^3/uL (1.2-3.8); Lymphocytes Percent Auto 24.5 % (20.5-60.0); Mean Corpuscular HGB Conc 31.7 g/dL (29.9-35.2); Mean Corpuscular Hemoglobin 29.4 pg (26.7-34.0); Mean Corpuscular Volume 92.8 fL (81.0-99.0); Monocytes Absolute Auto 0.8 10^3/uL (0.3-0.8); Monocytes Percent Auto 8.2 % (1.7-12.0); Neutrophils Absolute Auto 6.2 10^3/uL (1.4-6.5); Neutrophils Percent Auto 64.3 % (43.0-75.0); Platelet Count 401 10^3/uL (150-450); Red Blood Count 4.29 10^6/uL (4.20-5.40); Red Cell Distribution Width 13.8 % (11.0-15.0); White Blood Count 9.7 10^3/uL (4.0-11.0)
[2024-09-16 16:12] LABS: Alanine Aminotransferase 21 U/L (14-59); Albumin Globulin Ratio 0.8; Albumin Level 3.3 g/dL (3.4-5.0); Alkaline Phosphatase 110 U/L (46-116); Anion Gap 12.6; Aspartate Amino Transferase 12 U/L (15-37); BUN Creatinine Ratio 12.8; Bilirubin Total 0.2 mg/dL (0.2-1.0); Calcium 8.8 mg/dL (8.5-10.1); Carbon Dioxide 29.7 mmol/L (21.0-32.0); Chloride 104 mmol/L (98-107); Chol HDL Ratio 3.8; Cholesterol 182 mg/dL (<=200); Estimated GFR (African America >60 (>=60 mL/min/1.73m^2); Estimated GFR (Non-African Ame >60 (>=60 mL/min/1.73m^2); Globulin 3.9 g/dL; Glucose 99 mg/dL (74-106); HDL Cholesterol 48 mg/dL (40-60); Potassium 4.3 mmol/L (3.5-5.1); Sodium 142 mmol/L (136-145); Total Protein 7.2 g/dL (6.4-8.2); Triglycerides 163 mg/dL (<=150); VLDL CHOLESTEROL 32.6 mg/dL
[2024-09-18 07:16] LABS: QuantiFERON-TB Gold Plus Negative (Negative)
== END 2024-09-16 15:33 | disposition home or self-care (01) ==
LOC: LAB 15:37
DX: L40.0 Psoriasis vulgaris (principal); L40.8 Other psoriasis; L40.59 Other psoriatic arthropathy; Z79.899 Other long term (current) drug therapy
CPT/HCPCS: 36415; 80053; 80061; 85025; 86480

== ENCOUNTER 2024-11-19 00:19 | Emergency (ER) | payer OTHER, SELFPAY ==
[2024-11-19 00:17] VITALS: BP 116/78; PULSE 116; TEMP 37; O2SAT 99
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
--- OUTSIDE RECORDS SUMMARY | 2024-11-19 00:27 | XMS_ITS | Patient Health Record ---
Author Organization [facility] Address [address] [place] [address] Support Name Relationship Address Phone LILIANA HUGHES Guarantor Unknown [phone] Allergies Allergen (clinical drug ingredient) Drug/Non Drug Allergy documented on EMR Reaction Allergy Type Onset Date Status Vicodin (uncoded) Unknown Allergy Ac tive morphine morphine Unknown Drug Allergy Active Reason For Referral No Information Medications Medication SIG (Take, Route, Frequency, Duration) Notes Start Date End Date Status Ritalin Active Protonix Active atenolol Active Cosentyx Active amitriptyline Active Imitrex Active Social History Tobacco Use: Social History Observation Description Date Details (start date - stop date) Current Smoker NA - NA Smoking History Question Answer Notes Smoking Status Current Smoker Alcohol Screening Question Answer Notes Did you have a drink containging alcohol in the last year? No Points 0 Interpretation Negative AUDIT-C (Standard) Question Answer Notes Did you have a drink contain ing alcohol in the past year? Yes How often did you have six o r more drinks on one occasion in the past year? Less than monthly (1 point) How many drinks did you have on a typical day when you were drinking in the past year? 3 or 4 drinks (1 point) How often did you have a dri nk containing alcohol in the past year? Monthly or less (1 point) Points 3 Interpretation Positive Problems Problem Type SNOMED Code ICD Code Onset Dates Problem Status W/U Status Risk Notes Problem 087786547 Left leg swelling (M79.89) Active confirmed Problem [id number] Open bite, left thigh, initial encounter (S71.152A) Active confirmed Problem [id number] Bitten by dog, initial encounter (W54.0XXA) Active confirmed Plan Of Treatment No Information Insurance Providers Payer Name Payer Address Payer Phone Subscriber Number Group Number Insured Name Patient Relationship to Insured Coverage Start Date Coverage End Date Medicaid [employer] [place] [address] [place] [place] [address] [id number] JACKSON Self - patient is the insured Medical (General) History Medical History History ICD Code Drug allergies: yes Anxiety: yes Surgical History Surgery Date(Month/Year) Gallbladder removed Hysterectomy Appendectomy
--- OUTSIDE RECORDS SUMMARY | 2024-11-19 00:27 | XMS_ITS | CCD ---
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 Lipid panel Lab Routine Encounter for wellness examination in adult Expected: 01/29/2024 (Approximate), Expires: 01/28/2025 [facility] Comment on above: Expected: 01/29/2024 (Approximate), Expires: 01/28/2025 Start: 01-29-2024 End: 01-28-2025 TSH W/REFLEX TO FT4 TSH W/REFLEX TO FT4 Lab Routine Encounter for wellness examination in adult Expected: 01/29/2024 (Approximate), Expires: 01/28/2025 [facility] Work Phone: Comment on above: Expected: 01/29/2024 (Approximate), Expires: 01/28/2025 Start: 01-19-2024 Influenza vaccination Influenza Vacc ine (#1) [facility] Start: 2017 Screening for malign ant neoplasm of breast Mammogram [facility] Start: 1975 Screening for malign ant neoplasm of colon [facility] Payers Date Payer Category Payer Medicaid [employer] [place] [employer] [id number] 2022-Present [address] [place] [address] [id number] 1977 Unknown [id number] 1977 Unknown [id number] [id number] 1977 Unknown [id number] [id number] 1977 Unknown [id number] 2.16.840.1.628881.3.579.2.593 1977 Unknown [id number] 2.16.840.1.606271.3.579.2.593 1977 Unknown [id number] 2.16.840.1.474634.3.579.2.727 1977 Unknown [id number] 2.16.840.1.156708.3.579.2.727 1977 Unknown [id number] 2.16.840.1.156605.3.579.2.727 1977 Unknown [id number] 2.16.840.1.704458.3.579.2.1259 1977 Unknown [id number] 2.16.840.1.785051.3.579.2.1259 1977 Unknown [id number] 2.16.840.1.079810.3.579.2.1259 1977 Unknown [id number] [id number] 1959 Self-pay [id number] 1959 Unknown [id number] Social History Date Type Detail Facility Start: 09-02-2023 End: 01-29-2024 Tobacco smoking status VAIS Smokes tobacco daily [facility] History of [...] Attention deficit hyperactivity disorder (ADHD), combined type ([facility]) Patient previously struggled with Poor focus, concentration. [...] Ambulatory referral to Behavioral Health Primary hypertension ([facility]) - Primary Currently taking Atenolol 50mg Does not Check BP at home; Denies orthostatic changes, dizziness, cough, shortness of breath, swelling in extremities. Continue current regimen. Given BP log, advised pt to record BP and bring log back with them to next visit. DIOGENES (generalized anxiety disorder) ([facility]) Reports poorly controlled anxiety due to her [...] to Dr. Mcclendon documented in this encounter [facility] Instructions 01-29-2024 Patient Instructions Note Date [...] servings from each food group for a 2,532-bzsblod-h-day DASH diet: Grains: 6 to 8 servings [...] Read food labels and choose low-salt or [id number] options. Use salt-free spices or flavorings instead [...] Note Facility Evaluation note Diagnosis Primary hypertension ([facility])- Primary Unspecified essential hypertension Gastroesophageal reflux disease without esophagitis Esophageal reflux Attention deficit hyperactivity disorder (ADHD), combined type ([facility]) DIOGENES (generalized anxiety disorder) ([facility]) Generalized anxiety disorder Chronic migraine with aura and with status migrainosus, not intractable ([facility]) Seasonal allergies Allergic rhinitis, cause unspecified Encounter [...] Attention deficit hyperactivity disorder (ADHD), combined type ([facility]) DIOGENES (generalized anxiety disorder) ([facility]) Procedures [place] OFFICE/OUTPATIENT NEW HIGH MDM 60 MINUTES Myrna Wooten NP [address] [place] [address] Jody Rowe, GRINDING SUPERVISOR-CAM MAKER [address] [place] [address] Referral ID Status Reason Start Date Expiration Date Visits Requested Visits Authorized [id number] Authorized Specialty Services Required 01/29/2024 07/27/2024 1 [...] section and content) DATE CREATED AUTHOR 11/07/2017 [facility] DATE CREATED AUTHOR AUTHOR'S ORGANIZ ATION 07/28/2022 [facility] DATE CREATED AUTHOR AUTHOR'S ORGANIZ ATION 01/08/2023 [facility] DATE CREATED AUTHOR AUTHOR'S ORGANIZ ATION 03/22/2023 [facility] DATE CREATED AUTHOR AUTHOR'S ORGANIZ ATION 01/31/2024 [facility] EPIC Reason for Visit (unrecogniz ed section and content) Reason Comments Follow-up Headache Care Teams (unrecognized sec tion and content) Clinical Research Nurse Coordinator Relationship Specialty Start Date End Date Clint Peters MD [address] [place] [address] PCP - General Family Medicine 12/23/23 Myrna Wooten NP [address] [place] [address] Nurse Practitioner Family Medicine 12/23/23 Clinical Research Nurse Coordinator Relationship Specialty Start Date End Date Clint Peters MD [address] [place] [address] PCP - General Family Medicine 12/23/23 Myrna Wooten NP [address] [place] [address] Nurse Practitioner Family Medicine 12/23/23 Clinical Research Nurse Coordinator Relationship Specialty Start Date End Date Clint Peters MD [address] [place] [address] PCP - General Family Medicine 12/23/23 Myrna Wooten NP [address] [place] [address] Nurse Practitioner Family [facility] 12/23/23 FOR RECORDS PERTAINING TO PATIENTS WHO [...] BE BASED ON THE PRIMARY CLINICAL RECORDS. [facility]. provides no warranty or guarantee of the accuracy or completeness of information in this document.
--- OUTSIDE RECORDS SUMMARY | 2024-11-19 00:27 | XMS_ITS | Encounter Summary ---
Author Organization [facility] Address [address] [place] [address] Care Team Providers Care Knitting Machine Operator Automatic Name Role Phone Shaikh ERICKA Tobin Primary Care Provider [phone] Clint Peters MD Primary Care Provider [phone] Myrna Wooten NP Unavailable [phone] Shaikh ERICKA Tobin Unavailable [phone] Encounter Details Date Type Department Care Team ([facility] Contact Info) Description 09/03/2023 Orders Only [facility] [address] [place] [address] Shaikh Tobin MD [address] [place] [address] Attention deficit hyperactivity disorder (ADHD), combined type (Primary Dx) Social History Tobacco Use Types Packs/Day Years Used Date Smoking Tobacco: Every Day Cigarettes Passive Smoke Exposure: Current Smokeless Tobacco: Never Alcohol Use Standard Drinks/Week Comments Never 0 (1 standard drink = 0.6 oz pur e alcohol) PHQ-2 Answer Date Recorded Patient Health Questionnaire-2 Score 0 09/02/2023 Comments Unknown Sex and Gender Information Value Date Recorded Sex Assigned at Not on file Legal Sex Female 7:12 PM EDT Gender Identity Not on file Sexual Orientation Not on file documented as of this encounter Plan of Treatment Not on file documented as of this encounter Visit Diagnoses Diagnosis Attention deficit hyperactivity disorder (ADHD), combined type- Primary documented in this encounter Care Teams Knitting Machine Operator Automatic Relationship Specialty Start Date End Date Shaikh Tobin MD [address] [place] [address] PCP - General Internal Medicine 08/05/23 12/22/23 Clint Peters MD [address] [place] [address] PCP - General Family Medicine 12/23/23 Shaikh Tobin MD [address] [place] [address] PCP - [facility] 02/18/24 Myrna Wooten NP [address] [place] [address] Nurse Practitioner Family Medicine 12/23/23 documented as of this encounter
--- OUTSIDE RECORDS SUMMARY | 2024-11-19 00:27 | XMS_ITS | Encounter Summary ---
Author Organization [facility] Address [address] [place] [address] Care Team Providers Care Meat Dresser Name Role Phone Shaikh ERICKA Tobin Primary Care Provider [phone] Clint Peters MD Primary Care Provider [phone] Myrna Wooten NP Unavailable [phone] Shaikh ERICKA Tobin Unavailable [phone] Encounter Details Date Type Department Care Team ([facility] Contact Info) Description 09/09/2023 Clinisync Result Encounter [facility] External Department Unsolicited Shaikh Tobin MD [address] [place] [address] Social History Tobacco Use Types Packs/Day Years [...] on file documented as of this encounter Procedures Procedure Name Priority Date/Time Associated Diagnosis Comments MR HEAD/BRAIN WO CON 09/09/2023 4:45 PM EDT documented in this encounter Results * MR HEAD/BRAIN WO CON (09/09/2023 4:45 PM EDT) Anatomical Region Laterality Modality Other 09/09/2023 4:45 PM EDT Narrative 09/09/2023 4:48 PM EDT [facility] [place] [id number] Magnetic Resonance Report Signed Patient: JOSSIE HUGHES MR#: [id number] : 1975 Acct:[id number] Age/Sex: 48 / F ADM Date: 09/09/23 Loc: MRI Attending Dr: Shaikh Mahad Vega Ordering Physician: Shaikh Silvia Tobin Date of Service: 09/09/23 Procedure(s): MR head/brain wo con Accession Number(s): [id number] cc: Shaikh Silvia Tobin; Physician,Non-Staff Silvia [facility] [place] [id number] Patient Name: JOSSIE HUGHES MRN: [id number] date: 1975 Sex: F Assigned Patient Location: MRI Current Patient Location: MRI Accession/Order Number: [id number] Exam Date: 09/09/2023 15:50 Report Date: 09/09/2023 16:45 At the request of: SHAIKH MAHAD Procedure: MR head/brain wo con MR head/brain wo con HISTORY: Chronic migraine with aura and status migrainosus G43.E01 COMPARISON: None. TECHNIQUE: Multi-planar, multi-sequence brain MRI was performed without IV contrast. FINDINGS: Brain volume: Normal. Sagittal midline structures: Normal. Ventricles: Normal. Acute ischemic changes: None. Hemorrhage: None. Masses/edema: None. Mcdonough-white: Negative. White matter: Normal. Vessels: Normal. Extra-axial: None. Calvarium/scalp: Negative. Skull base: Negative. Visualized sinuses/orbits: Negative. Visualized upper neck: Negative. MR/MR head/brain wo con IMPRESSION: 1. Normal examination. Electronically authenticated by: LEWIS LAURENT Date: 09/09/2023 16:45 Dictated By: Lewis Laurent M.D. Signed By: 09/09/231647 DD/ 44 TD/TT: Certified Court/Medical Interpreter: Procedure Note Radiology, Radiologist, MD - 09/09/2023 [place] [address] Magnetic Resonance Report Signed Patient: JOSSIE HUGHES MMR#: [id number] : 1975Acct:[id number] Age/Sex: 48 / FADM Date: 09/09/23 Loc: MRI Attending Dr: Shaikh Mahad Vega Ordering Physician: Shaikh Silvia Tobin Date of Service: 09/09/23 Procedure(s): MR head/brain wo con Accession Number(s): [id number] cc: Shaikh Silvia Tobin; Physician,Non-Staff Silvia [facility] [place] [address] Patient Name: JOSSIE HUGHES MRN: [id number] date: 1975 Sex: F Assigned Patient Location: MRI Current Patient Location: MRI Accession/Order Number: [id number] Exam Date: 09/09/2023 15:50 Report Date: 09/09/2023 16:45 At the request of: SHAIKH MAHAD Procedure: MR head/brain wo con MR head/brain wo con HISTORY: Chronic migraine with aura and status migrainosus G43.E01 COMPARISON: None. TECHNIQUE: Multi-planar, multi-sequence brain MRI was performed without IV contrast. FINDINGS: Brain volume: Normal. Sagittal midline structures: Normal. Ventricles: Normal. Acute ischemic changes: None. Hemorrhage: None. Masses/edema: None. Mcdonough-white: Negative. White matter: Normal. Vessels: Normal. Extra-axial: None. Calvarium/scalp: Negative. Skull base: Negative. Visualized sinuses/orbits: Negative. Visualized upper neck: Negative. MR/MR head/brain wo con IMPRESSION: 1. Normal examination. Electronically authenticated by: LEWIS LAURENT Date: 09/09/2023 16:45 Dictated By: Lewis Laurent M.D. Signed By:09/09/231647 DD/ TD/TT: Certified Court/Medical Interpreter: us Shaikh Mahad [facility] Final Result documented in this encounter Visit Diagnoses Not on filedocumented in this encounter Care Teams Meat Dresser Relationship Specialty Start Date End Date Shaikh Tobin MD [address] [place] [address] PCP - General Internal Medicine 08/05/23 12/22/23 Clint Peters MD [address] [place] [address] PCP - General Family Medicine 12/23/23 Shaikh Tobin MD [address] [place] [address] PCP - [facility] 02/18/24 Myrna Wooten NP [address] [place] [address] Nurse Practitioner Family Medicine 12/23/23 documented as of this encounter
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
[2024-11-19] MEDS: ACETAMINOPHEN 500 MG TABLET 1000 MG PO (00:42)
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
--- NOTE | 2024-11-19 01:38 | PHOTOS ---
back of neck
[2024-11-19 01:51] VITALS: BP 126/85; PULSE 92; TEMP 37.2; O2SAT 96
--- NOTE | 2024-11-19 01:57 | PC.NURSE ---
i gave this patient verbal and written discharge orders and this patient voices yes to understanding these. at time of discharge this patient voices no concerns or needs and shows no signs of distress
== END 2024-11-19 01:57 | disposition home or self-care (01) ==
PROVIDERS: Emergency Provider Emergency Medicine; PCP Internal Medicine
DX: S43.401A Unspecified sprain of right shoulder joint, initial encounter (principal); S93.601A Unspecified sprain of right foot, initial encounter; S93.401A Sprain of unspecified ligament of right ankle, initial encounter; S63.501A Unspecified sprain of right wrist, initial encounter; Y09 Assault by unspecified means
CPT/HCPCS: 73030; 73110; 73610; 73630; 99284

== ENCOUNTER 2024-12-18 10:01 | Outpatient (OUT) | payer OTHER, SELFPAY ==
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
--- OUTSIDE RECORDS SUMMARY | 2024-12-02 11:00 | XMS_ITS ---
Author Organization [facility] Address [address] [place] [address] Care Team Providers Care Color Consultant Name Role Phone Cy Poole Unavailable [phone] REASON FOR VISIT RIGHT SHOULDER Encounters Encounter Location Date Provider Diagnosis [facility] [facility] [address] [place] [address] 12/02/2024 Cy Poole Plan Of Treatment No Information Progress Notes * EN HUGHESADOB:1975 (49 yo F)Acc No.[id number]:12/02/2024 Patient: LILIANA HOBSON Provider: Viki Poole MD :1975 A ge:49 Y S ex:Female Date:12/02/2024 Address:[address] [place], [place] [id number] Subjective: * Chief Complaints: * 1 . RIGHT SHOULDER. * Medical History: Objective: * Vitals: Assessment: Plan: * Treatment: Forms: * Images: * Electronic signature of Shoaib Poole MD on 12/18/2024 at 10:03 AM EDT Sign off status: Pending * Provider: Viki Poole MD Date: 12/02/2024 Generated for Alejandra costello/Libertad/eTransmitting on: 12/18/2024 10:03 AM EDT
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
--- NOTE | 2024-12-18 | MR_ITS ---
The [address] [address] Patient Name: LILIANA HUGHES MRN: [id number] date: 1975 Sex: F Assigned Patient Location: MRI Current Patient Location: MRI Accession/Order Number: [id number] Exam Date: 12/18/2024 11:34 Report Date: 12/18/2024 11:50 At the request of: IVANA BOSS MD Procedure: MR shoulder RT wo con EXAMINATION: MRI OF THE RIGHT SHOULDER CLINICAL HISTORY: CLOSED NONDISPLACED FRACTURE OF RIGHT HUMERUS COMPARISON: Right shoulder series 11/19/2024 TECHNIQUE: Multiecho, multiplanar imaging was performed with use of an extremity coil. No contrast was administered. FINDINGS: Bones/Joints: There is significant bone marrow edema involving the humeral head with fracture in the region of the greater tubercle as seen on the prior right shoulder series. There is associated retraction of the fracture fragment along with the supraspinatus tendon of approximately 8 mm. There is associated minimal joint effusion as well as subacromial/subdeltoid bursitis. Mild degenerative changes are noted involving the AC joint. Humeral ligament appears unremarkable. Labrum: No definitive tear. Biceps tendon: Situated within the bicipital groove a small amount of surrounding fluid. No abnormal signal seen within the tendon. The tendon is seen to level of the labrum. Supraspinatus: Tendinosis. Avulsion as described above. There are subtle partial-thickness tears near its insertion upon the fracture fragment. No full-thickness tear is seen. Infraspinatus: Tendinosis without definitive tear. Teres Minor: Normal Subscapularis: Tendinosis without definitive tear. MR/MR shoulder RT wo con IMPRESSION: THERE IS A MILDLY DISPLACED FRACTURE INVOLVING THE GREATER TUBERCLE WITH ASSOCIATED SIGNIFICANT BONE MARROW EDEMA, MINIMAL JOINT EFFUSION WELL SUBACROMIAL/SUBDELTOID BURSITIS. THERE IS APPROXIMATELY 8 MM OF DISPLACEMENT/RETRACTION OF THE FRACTURE FRAGMENT ALONG THE SUPRASPINATUS TENDON WITH ASSOCIATED TENDINOSIS AND LIKELY SUBTLE PARTIAL-THICKNESS TEARS. NO FULL-THICKNESS TEAR IS SEEN INVOLVING THE SUPRASPINATUS. TENDINOSIS INVOLVING THE INFRASPINATUS AND SUBSCAPULARIS WITHOUT DEFINITIVE TEAR.. Impression dictated by: Lewis Jane Jr., D.OLeonid 12/18/2024 11:50 AM Dictation Location: [place] [address] Electronically authenticated by: [id number] Y Date: 12/18/2024 11:50
--- OUTSIDE RECORDS SUMMARY | 2024-12-18 10:03 | XMS_ITS | Encounter Summary ---
Author Organization [facility] Address [address] [place] [address] Care Team Providers Care Manager Of Security Name Role Phone Shaikh ERICKA Tobin Primary Care Provider [phone] Clint Peters MD Primary Care Provider [phone] Myrna Wooten NP Unavailable [phone] Shaikh ERICKA Tobin Unavailable [phone] Encounter Details Date Type Department Care Team ([facility] Contact Info) Description 09/03/2023 Orders Only [facility] [address] [place] [address] Shaikh Tobin MD [address] [place] [address] Attention deficit hyperactivity disorder (ADHD), combined type [...] Primary documented in this encounter Care Teams Manager Of Security Relationship Specialty Start Date End Date Shaikh Tobin MD [address] [place] [address] PCP - General Internal Medicine 08/05/23 12/22/23 Clint Peters MD [address] [place] [address] PCP - General Family Medicine 12/23/23 Shaikh Tobin MD [address] [place] [address] PCP - [facility] 02/18/24 Myrna Wooten NP [address] [place] [address] Nurse Practitioner Family Medicine 12/23/23 documented as of this encounter
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
--- OUTSIDE RECORDS SUMMARY | 2024-12-18 10:04 | XMS_ITS | Patient Health Record ---
Author Organization [facility] Address [address] [place] [address] Care Team Providers Care Seal Mixing Operator Name Role Phone PooleCy dennis Unavailable [phone] Allergies Allergen (clinical drug ingredient) Drug/Non Drug Allergy documented on EMR Reaction Allergy Type Onset Date Status Vicodin (uncoded) Unknown Allergy Ac tive morphine morphine Unknown Drug Allergy Active Reason For Referral Reason APPROVED .......JOHNNY ALEGRIA OBTAIN AUTHORIZATION FOR MRI RIGHT SHOULDER Diagnosis 1 Closed nondisplaced fracture of greater tuberosity of right humerus, initial encounter (S42.254A) Referral Organization [facility] Referring Provider First Name Cy Referring Provider Last Name Zulema Referring Provider Speciality Orthopedic Surgery Referred Organization [facility] cristela Referred Address [place], [place], Procedure 1 MRI Joint Upper Ext w/o Dye (92249) General Notes Lasehll Irby 025 12:21:15 PM >NO DICTATIONSurekha Amy 12/08/2024 07:19:24 AM >STILL NO DICTATIONSurekha Amy 12/09/2024 03:29:07 PM >APPROVED PER [facility] AUTH #[id number] VALID 12/04/2024-01/03/2025 COPY IN CHART MA NOTIFIED REF FAXED TO Christophre QUEEN Kimberly 12/10/2024 08:07:34 AM >Faxed order to [facility] Referral Priority Stat Medications Medication SIG (Take, Route, Frequency, Duration) Notes Start Date End Date Status Imitrex Active Protonix Active amitriptyline Active Cosentyx Active atenolol Active Ritalin Active Social History Tobacco Use: Social History [...] Problem Status W/U Status Risk Notes Problem 886356047 Left leg swelling (M79.89) Active confirmed Problem 337498089 Open bite, left thigh, initial encounter (S71.152A) Active confirmed Problem [id number] Bitten by dog, initial encounter (W54.0XXA) Active confirmed Encounters Encounter Location Date Provider Diagnosis [facility] [address] [place] [address] 12/03/2024 Cy Poole Closed nondisplaced fracture of [...] is complete. Import medication Plan Of Treatment Pending Test Test Name Order Date MRI : Shoulder W/O Contrast Right - 7322 1 12/03/2024 Insurance Providers Payer Name Payer Address Payer Phone Subscriber Number Group Number Insured Name Patient Relationship to Insured Coverage Start Date Coverage End Date Medicaid [employer] [place] [address] [place] [address] [id number] LILIANA HUGHES Self - patient is the insured Medical (General) History Medical History History ICD Code Drug allergies: yes Anxiety: yes Asthma/COPD Hypertension Surgical History Surgery Date(Month/Year) Gallbladder removed Hysterectomy Appendectomy
--- OUTSIDE RECORDS SUMMARY | 2024-12-18 10:04 | XMS_ITS | Encounter Summary ---
Author Organization [facility] Address [address] [place] [address] Care Team Providers Care Rat Farmer Name Role Phone Shaikh ERICKA Tobin Primary Care Provider [phone] Clint Peters MD Primary Care Provider [phone] Myrna Wooten NP Unavailable [phone] Shaikh ERICKA Tobin Unavailable [phone] Encounter Details Date Type Department Care Team (Late Contact Info) Description 09/09/2023 Clinisync Result Encounter [facility] External Department Unsolicited Shaikh Tobin MD [address] [place] [phone] Social History Tobacco Use Types Packs/Day Years [...] EDT Narrative 09/09/2023 4:48 PM EDT [facility] [place] [id number] Magnetic Resonance Report Signed Patient: JOSSIE HUGHES MR#: [id number] : 1975 Acct:[id number] Age/Sex: 48 / F ADM Date: 09/09/23 Loc: MRI Attending Dr: Shaikh Mahad Vega Ordering Physician: Shaikh Silvia Tobin Date of Service: 09/09/23 Procedure(s): MR head/brain wo con Accession Number(s): [id number] cc: Shaikh Silvia Tobin; Physician,Non-Staff Silvia [facility] [place] [id number] Patient Name: JOSSIE HUGHES MRN: [id number] date: 1975 Sex: F Assigned Patient Location: MRI Current Patient Location: MRI Accession/Order Number: [id number] Exam Date: 09/09/2023 15:50 Report Date: 09/09/2023 [...] M.D. Signed By: 09/09/231647 DD/ 44 TD/TT: Director Environmental: Procedure Note Radiology, Radiologist, MD - 09/09/2023 [place] [address] Magnetic Resonance Report Signed Patient: JOSSIE HUGHES MMR#: [id number] : 1975Acct:[id number] Age/Sex: 48 / FADM Date: 09/09/23 Loc: MRI Attending Dr: Shaikh Mahad Vega Ordering Physician: Shaikh Silvia Tobin Date of Service: 09/09/23 Procedure(s): MR head/brain wo con Accession Number(s): [id number] cc: Shaikh Silvia Tobin; Physician,Non-Staff Silvia [facility] [place] [address] Patient Name: JOSSIE HUGHES MRN: [id number] date: 1975 Sex: F Assigned Patient Location: MRI Current Patient Location: MRI Accession/Order Number: [id number] Exam Date: 09/09/2023 15:50 Report Date: 09/09/2023 [...] Lewis Laurent M.D. Signed By:09/09/231647 DD/ TD/TT: Director Environmental: us Shaikh Mahad [facility] Final Result documented in this encounter Visit Diagnoses Not on filedocumented in this encounter Care Teams Rat Farmer Relationship Specialty Start Date End Date Shaikh Tobin MD [address] [place] [phone] PCP - General Internal Medicine 08/05/23 12/22/23 Clint Peters MD [address] [place] [address] PCP - General Family Medicine 12/23/23 Shaikh Tobin MD [address] [place] [address] PCP - [facility] 02/18/24 Myrna Wooten NP [address] [place] [address] Nurse Practitioner Family Medicine 12/23/23 documented as of this encounter
--- OUTSIDE RECORDS SUMMARY | 2024-12-18 10:11 | XMS_ITS | CCD ---
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 orthostatic changes, dizziness, cough, shortness of breath, swelling in extremities. Continue current regimen. Given BP log, advised pt to record BP and bring log back with them to next visit. DIOGENES (generalized anxiety disorder) ([facility]) Reports poorly controlled anxiety due to her [...] to Dr. Mcclendon documented in this encounter [facility] Instructions 01-29-2024 Patient Instructions Note [...] servings from each food group for a 2,601-rtjwenr-t-day DASH diet: Grains: 6 to 8 servings [...] Read food labels and choose low-salt or es-erur-gouyd options. Use salt-free spices or flavorings instead [...] Note Facility Evaluation note Diagnosis Primary hypertension ([facility])- Primary Unspecified essential hypertension Gastroesophageal reflux disease without esophagitis Esophageal reflux Attention deficit hyperactivity disorder (ADHD), combined type ([facility]) DIOGENES (generalized anxiety disorder) ([facility]) Generalized anxiety disorder Chronic migraine with aura and with status migrainosus, not intractable ([facility]) Seasonal allergies Allergic rhinitis, cause unspecified Encounter [...] Attention deficit hyperactivity disorder (ADHD), combined type ([facility]) DIOGENES (generalized anxiety disorder) ([facility]) Procedures MA OFFICE/OUTPATIENT NEW HIGH MDM 60 MINUTES Myrna Wooten NP [address] [place] [address] Jody Rowe, ELECTRIC RANGE PREPARER-MUSIC THERAPIST [employer] [address] [place] [address] Referral ID Status Reason Start Date Expiration Date Visits Requested Visits Authorized [id number] Authorized Specialty Services Required 01/29/2024 07/27/2024 1 [...] section and content) DATE CREATED AUTHOR 11/07/2017 [facility] DATE CREATED AUTHOR AUTHOR'S ORGANIZ ATION 07/28/2022 [facility] DATE CREATED AUTHOR AUTHOR'S ORGANIZ ATION 01/08/2023 [facility] DATE CREATED AUTHOR AUTHOR'S ORGANIZ ATION 03/22/2023 Wong Harding [facility] DATE CREATED AUTHOR AUTHOR'S ORGANIZ ATION 01/31/2024 [facility] EPIC Reason for Visit (unrecogniz ed section and content) Reason Comments Follow-up Headache Care Teams (unrecognized sec tion and content) Physical Education Teacher Relationship Specialty Start Date End Date Clint Peters MD [address] [address] PCP - General Family Medicine 12/23/23 Myrna Wooten NP [address] [place] [address] Nurse Practitioner Family Medicine 12/23/23 Physical Education Teacher Relationship Specialty Start Date End Date Clint Peters MD [address] [place] [address] PCP - General Family Medicine 12/23/23 Myrna Wooten NP [address] [place] [address] Nurse Practitioner Family Medicine 12/23/23 Physical Education Teacher Relationship Specialty Start Date End Date Clint Peters MD [address] [place] [address] PCP - General Family Medicine 12/23/23 Myrna Wooten NP [address] [place] [address] Nurse Practitioner Family [facility] 12/23/23 FOR RECORDS PERTAINING TO PATIENTS WHO [...] BE BASED ON THE PRIMARY CLINICAL RECORDS. [facility] [employer] [facility]. provides no warranty or guarantee of the accuracy or completeness of information in this document.
== END 2024-12-18 10:02 | disposition home or self-care (01) ==
LOC: MRI 10:01
PROVIDERS: Visit Provider Orthopaedic Surgery
DX: S42.254A Nondisplaced fracture of greater tuberosity of right humerus, initial encounter for closed fracture (principal); S42.251A Displaced fracture of greater tuberosity of right humerus, initial encounter for closed fracture
CPT/HCPCS: 73221

== ENCOUNTER 2025-02-22 15:57 | Outpatient (OUT) | payer OTHER, SELFPAY ==
--- OUTSIDE RECORDS SUMMARY | 2024-11-25 11:00 | XMS_ITS ---
Author Organization [facility] Address [address] [place] [address] Care Team Providers Care Scuba Instructor Name Role Phone Cy Poole Unavailable [phone] REASON FOR VISIT RIGHT SHOULDER Encounters Encounter Location Date Provider Diagnosis [facility] [facility] [address] [place] [address] 11/25/2024 Cy Poole Plan Of Treatment No Information Progress Notes * SAULENADOB:1975 (50 yo F)Acc No.[id number]:11/25/2024 Patient: LILIANA HOBSON Provider: Viki Poole MD :1975 A ge:49 Y S ex:Female Date:11/25/2024 Address:[address] [place], [place] [id number] Subjective: * Chief Complaints: * 1 . RIGHT SHOULDER. * Medical History: Objective: * Vitals: Assessment: Plan: * Treatment: Forms: * Images: * Electronic signature of Shoaib Poole MD on 02/22/2025 at 04:01 PM EDT Sign off status: Pending * Provider: Viki Poole MD Date: 0 11/25/2024 Generated for Alejandra costello/Libertad/eTransmitting on: 1 04:01 PM EDT
--- OUTSIDE RECORDS SUMMARY | 2024-12-02 11:00 | XMS_ITS ---
Author Organization [facility] Address [address] [place] [address] Care Team Providers Care Logistic Manager Name Role Phone Cy Poole Unavailable [phone] REASON FOR VISIT RIGHT SHOULDER Encounters Encounter Location Date Provider Diagnosis [facility] [facility] [address] [place] [address] 12/02/2024 Cy Poole Plan Of Treatment No Information Progress Notes * EN HUGHESADOB:1975 (50 yo F)Acc No.[id number]:12/02/2024 Patient: LILIANA HOBSON Provider: Viki Poole MD :1975 A ge:49 Y S ex:Female Date:12/02/2024 Address:[address] [place], [place] [id number] Subjective: * Chief Complaints: * 1 . RIGHT SHOULDER. * Medical History: Objective: * Vitals: Assessment: Plan: * Treatment: Forms: * Images: * Electronic signature of Shoaib Poole MD on 02/22/2025 at 04:01 PM EDT Sign off status: Pending * Provider: Viki Poole MD Date: 0 12/02/2024 Generated for Alejandra costello/Libertad/eTransmitting on: 1 04:01 PM EDT
--- OUTSIDE RECORDS SUMMARY | 2025-02-22 16:01 | XMS_ITS | Clinical Summary ---
Author Organization [facility] Address [address] [place] [address] Care Team Providers Care Paver Name Role Phone Clint Peters MD Primary Care Provider [phone] Myrna Wooten NP Unavailable [phone] Shaikh ERICKA Tobin Unavailable [phone] Allergies Active Allergy Reactions Criticality Noted [...] Date Recorded Patient Health Questionnaire-2 Score 0 10/16/2023 Comments Unknown Sex and Gender Information Value [...] 2025 Insurance [employer] Care Teams Paver Relationship Specialty Start Date End Date Clint Peters MD PCP - General Family Medicine 12/23/23 Shaikh Tobin MD [address] [place] [address] PCP - [facility] 02/18/24 Myrna Wooten NP Nurse Practitioner Family Medicine 12/23/23
--- OUTSIDE RECORDS SUMMARY | 2025-02-22 16:01 | XMS_ITS | Encounter Summary ---
Author Organization [facility] Address [address] [place] [address] Care Team Providers Care Second Cook And Baker Name Role Phone Shaikh ERICKA Tobin Primary Care Provider [phone] Clint Peters MD Primary Care Provider [phone] Myrna Wooten NP Unavailable [phone] Shaikh ERICKA Tobin Unavailable [phone] Encounter Details Date Type Department Care Team ([facility] Contact Info) Description 09/09/2023 Clinisync Result Encounter [facility] External Department Unsolicited Shaikh Tobin MD [address] [facility] [place] [address] Social History Tobacco Use Types Packs/Day Years [...] EDT Narrative 09/09/2023 4:48 PM EDT [facility] [place] [id number] Magnetic Resonance Report Signed Patient: JOSSIE HUGHES MR#: [id number] : 1975 Acct:[id number] Age/Sex: 48 / F ADM Date: 09/09/23 Loc: MRI Attending Dr: Shaikh Sravani Vega Ordering Physician: Shaikh Silvia Tobin Date of Service: 09/09/23 Procedure(s): MR head/brain wo con Accession Number(s): [id number] cc: Shaikh Silvia Tobin; Physician,Non-Staff Silvia [facility] [place] [id number] Patient Name: JOSSIE HUGHES MRN: [id number] date: 1975 Sex: F Assigned Patient Location: MRI Current Patient Location: MRI Accession/Order Number: [id number] Exam Date: 09/09/2023 15:50 Report Date: 09/09/2023 16:45 At the request of: SHAIKH SRAVANI Procedure: MR head/brain wo con MR head/brain [...] M.D. Signed By: 09/09/231647 DD/ 44 TD/TT: Clinical Psychologist: Procedure Note Radiology, Radiologist, MD - 09/09/2023 [place] [address] Magnetic Resonance Report Signed Patient: JOSSIE HUGHES MMR#: [id number] : 1975Acct:[id number] Age/Sex: 48 / FADM Date: 09/09/23 Loc: MRI Attending Dr: Shaikh Sravani Vega Ordering Physician: Shaikh Silvia Tobin Date of Service: 09/09/23 Procedure(s): MR head/brain wo con Accession Number(s): [id number] cc: Shaikh Silvia Tobin; Physician,Non-Staff Silvia [facility] [place] [address] Patient Name: JOSSIE HUGHES MRN: [id number] date: 1975 Sex: F Assigned Patient Location: MRI Current Patient Location: MRI Accession/Order Number: [id number] Exam Date: 09/09/2023 15:50 Report Date: 09/09/2023 16:45 At the request of: SHAIKH SRAVANI Procedure: MR head/brain wo con MR head/brain [...] By: Lewis Laurent M.D. Signed By:09/09/231647 DD/ 44 TD/TT: Clinical Psychologist: us Shaikh Sravani [facility] Final Result documented in this encounter Visit Diagnoses Not on filedocumented in this encounter Care Teams Second Cook And Baker Relationship Specialty Start Date End Date Shaikh Tobin MD PCP - General Internal Medicine 08/05/23 12/22/23 Clint Peters MD PCP - General Family Medicine 12/23/23 Shaikh Tobin MD [address] [place] [address] PCP - [facility] 02/18/24 Myrna Wooten NP Nurse Practitioner Family Medicine 12/23/23 documented as of this encounter
--- OUTSIDE RECORDS SUMMARY | 2025-02-22 16:01 | XMS_ITS | Encounter Summary ---
Author Organization [facility] Address [address] [facility] [place] [address] Care Team Providers Care Assembly Leader Name Role Phone Shaikh ERICKA Tobin Primary Care Provider [phone] Clint Peters MD Primary Care Provider [phone] Myrna Wooten NP Unavailable [phone] Shaikh ERICKA Tobin Unavailable [phone] Encounter Details Date Type Department Care Team ([facility] Contact Info) Description 09/03/2023 Orders Only [facility] [address] [place] [address] Shaikh Tobin MD [address] [place] [address] Attention deficit hyperactivity disorder (ADHD), combined type [...] Primary documented in this encounter Care Teams Assembly Leader Relationship Specialty Start Date End Date Shaikh Tobin MD PCP - General Internal Medicine 08/05/23 12/22/23 Clint Peters MD PCP - General Family Medicine 12/23/23 Shaikh Tobin MD [address] [place] [address] PCP - [facility] 02/18/24 Myrna Wooten NP Nurse Practitioner Family Medicine 12/23/23 documented as of this encounter
--- OUTSIDE RECORDS SUMMARY | 2025-02-22 16:01 | XMS_ITS | Patient Health Record ---
Author Organization [facility] Address [address] [address] Care Team Providers Care Drill Press Operator For Metal Name Role Phone Cy Poole Unavailable [phone] BonifacioYusra muñiz Unavailable [phone] Allergies Allergen (clinical drug ingredient) Drug/Non Drug Allergy documented on EMR Reaction Allergy Type Onset Date Status Vicodin (uncoded) Unknown Allergy Ac tive morphine morphine Unknown Drug Allergy Active Reason For Referral Reason APPROVED .......JOHNNY ALEGRIA OBTAIN AUTHORIZATION FOR MRI RIGHT SHOULDER Diagnosis 1 Closed nondisplaced fracture of greater tuberosity of right humerus, initial encounter (S42.254A) Referral Organization [facility] Referring Provider First Name Cy Referring Provider Last Name Zulema Referring Provider Speciality Orthopedic Surgery [facility] Referred Address [place], [place], Procedure 1 MRI Joint Upper Ext w/o Dye ([id number]) General Notes Lashell Irby 025 12:21:15 PM >NO DICTATIONSurekha Amy 12/08/2024 07:19:24 AM >STILL NO DICTATIONSurekha Amy 12/09/2024 03:29:07 PM >APPROVED PER YANCI AUTH #[id number] VALID 12/04/2024-01/03/2025 COPY IN CHART MA NOTIFIED REF FAXED TO Christopher QUEEN Kimberly 12/10/2024 08:07:34 AM >Faxed order to [facility] Referral Priority Stat Medications Medication SIG (Take, Route, Frequency, Duration) Notes Start Date End Date Status atenolol Active Protonix Active Ritalin Active Cosentyx Active Imitrex Active amitriptyline Active Social History Tobacco Use: Social History [...] Problem Status W/U Status Risk Notes Problem 24842447 Cervical radiculopathy (M54.12) Active confirmed Problem 815892245 Left leg swellin g (M79.89) Active confirmed Problem 473758339 Open bite, left thigh, initial encounter (S71.152A) Active confirmed Problem 155715965 Bitten by dog, initial encounter (W54.0XXA) Active confirmed Problem 800855465 Closed nondisplaced fracture of greater tuberosity of right humerus, initial encounter (S42.254A) Active confirmed Encounters Encounter Location Date Provider Diagnosis [facility] Office [address] [place] [address] 12/03/2024 Cy Zulema Closed nondisplaced fracture of greater tuberosity of right humerus, initial encounter S42.254A [facility] Office [address] [facility] [place] [address] 12/30/2024 Yusra Valdovinos Closed nondisplaced fracture of greater tuberosity of right humerus, initial encounter S42.254A and Cervical radiculopathy M54.12 Assessments Encounter Date Diagnosis (ICD Code) Assessment Notes Treatment Notes Treatment Clinical Notes Section Notes 12/03/2024 Closed nondisplaced fracture of greater tuberosity of right humerus, initial encounter (ICD-10 - S42.254A) 12/30/2024 Cervical radiculopathy (ICD-10 - M54.12) 12/30/2024 Closed nondisplaced fracture of greater tuberosity of right humerus, initial encounter (ICD-10 - S42.254A) 12/03/2024 Other For her right shoulder fracture I recommended an MRI scan to evaluate for possible rotator cuff tear as well. She will continue in the sling. I have discussed the importance of no active shoulder motion. She will follow-up once the MRI is complete. Import medication 12/30/2024 Other I have reviewed her MRI results with her and have recommended conservative treatment. I have prescribed physical therapy to help with restoring shoulder range of motion and strengthening of her rotator cuff. She will slowly ease out of the sling and be on a couple pound lifting restriction. Will prescribe therapy for her cervical spine as well. Will follow-up in 6 weeks to repeat x-rays of her shoulder and reassess her progress. Plan has been agreed upon by my supervising physician, MD Kvng. Plan Of Treatment Pending Test Test Name Order Date PT EVAL AND TREAT 12/30/2024 SCC- CERVICAL 4 VIEW 12/30/2024 MRI : Shoulder W/O Contrast Right - 7322 1 12/03/2024 Insurance Providers Payer Name Payer Address Payer Phone Subscriber Number Group Number Insured Name Patient Relationship to Insured Coverage Start Date Coverage End Date Medicaid [employer] [place] [address] [place] [address] [id number] LILIANA HUGHES Self - patient is the insured Medical (General) History Medical History History ICD Code Drug allergies: yes Anxiety: yes Asthma/COPD Hypertension Surgical History Surgery Date(Month/Year) Gallbladder removed Hysterectomy Appendectomy
--- OUTSIDE RECORDS SUMMARY | 2025-02-22 16:02 | XMS_ITS | CCD ---
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 Start: 2017 Screening for malign ant neoplasm of breast Mammogram [facility] Start: 1977 Screening for malign ant neoplasm of colon [facility] Payers Date Payer Category Payer Medicaid [employer] [place] [employer] [id number] 2022-Present [address] [place] [address] [id number] 1977 Unknown [id number] 1977 Unknown [id number] 1977 Unknown [id number] [id number] 1977 Unknown [id number] [id number] 1977 Unknown [id number] [id number] 1977 Unknown [id number] [id number] 1977 Unknown [id number] [id number] 1977 Unknown [id number] [id number] 1977 Unknown [id number] [id number] 1977 Unknown [id number] [id number] 1977 Unknown [id number] [id number] 1977 Unknown [id number] [id number] 1959 Self-pay [id number] 1959 Unknown [id number] Social History Date Type Detail Facility Start: 09-02-2023 End: 01-29-2024 Tobacco smoking status TNIS Smokes tobacco daily [facility] History of [...] Attention deficit hyperactivity disorder (ADHD), combined type ([facility]) Patient previously struggled with Poor focus, concentration. [...] Ambulatory referral to Behavioral Health Primary hypertension ([facility]) - Primary Currently taking Atenolol 50mg Does not Check BP at home; Denies orthostatic changes, dizziness, cough, shortness of breath, swelling in extremities. Continue current regimen. Given BP log, advised pt to record BP and bring log back with them to next visit. DIOGENES (generalized anxiety disorder) ([facility]) Reports poorly controlled anxiety due to her [...] to Dr. Mcclendon documented in this encounter [facility] Instructions 01-29-2024 Patient Instructions Note Date [...] servings from each food group for a 2,416-mewvirh-d-day DASH diet: Grains: 6 to 8 servings [...] Read food labels and choose low-salt or by-[id number]-ucdtm options. Use salt-free spices or flavorings instead [...] Note Facility Evaluation note Diagnosis Primary hypertension ([facility])- Primary Unspecified essential hypertension Gastroesophageal reflux disease without esophagitis Esophageal reflux Attention deficit hyperactivity disorder (ADHD), combined type ([facility]) DIOGENES (generalized anxiety disorder) ([facility]) Generalized anxiety disorder Chronic migraine with aura and with status migrainosus, not intractable ([facility]) Seasonal allergies Allergic rhinitis, cause unspecified Encounter [...] Attention deficit hyperactivity disorder (ADHD), combined type ([facility]) DIOGENES (generalized anxiety disorder) ([facility]) Procedures NC OFFICE/OUTPATIENT NEW HIGH MDM 60 MINUTES Myrna Wooten NP [address] [place] [address] Jody Rowe, FILM TESTS CHECKER-DA[employer] WORKER [address] [place] [address] Referral ID Status Reason Start Date Expiration Date Visits Requested Visits Authorized [id number] Authorized Specialty Services Required 01/29/2024 07/27/2024 1 [...] section and content) DATE CREATED AUTHOR 11/07/2017 [facility] DATE CREATED AUTHOR AUTHOR'S ORGANIZ ATION 07/28/2022 [facility] DATE CREATED AUTHOR AUTHOR'S ORGANIZ ATION 01/08/2023 [facility] DATE CREATED AUTHOR AUTHOR'S ORGANIZ ATION 03/22/2023 Wong Bandar [facility] DATE CREATED AUTHOR AUTHOR'S ORGANIZ ATION 01/31/2024 [facility] EPIC Reason for Visit (unrecogniz ed section and content) Reason Comments Follow-up Headache Care Teams (unrecognized sec tion and content) Subscription Crew Leader Relationship Specialty Start Date End Date Clint Peters MD [address] [place] [address] PCP - General Family Medicine 12/23/23 Myrna Wooten NP [address] [place] [id number] Nurse Practitioner Family Medicine 12/23/23 Subscription Crew Leader Relationship Specialty Start Date End Date Clint Peters MD [address] [place] [address] PCP - General Family Medicine 12/23/23 Myrna Wooten NP [address] [place] [address] Nurse Practitioner Family Medicine 12/23/23 Subscription Crew Leader Relationship Specialty Start Date End Date Clint Peters MD [address] [place] [id number] PCP - General Family Medicine 12/23/23 Myrna Wooten NP [address] [place] [address] Nurse Practitioner Family [facility] 12/23/23 FOR RECORDS PERTAINING TO PATIENTS [...] BE BASED ON THE PRIMARY CLINICAL RECORDS. [facility] [employer] [facility]. provides no warranty or guarantee of the accuracy or completeness of information in this document.
[2025-02-22 16:43] LABS: Cannabinoid Screen Urine NEGATIVE (NEGATIVE); Methamphetamines Screen Urine NEGATIVE (NEGATIVE); Tricyclic Antidepressant Urine NEGATIVE (NEGATIVE)
== END 2025-02-22 15:58 | disposition home or self-care (01) ==
DX: F10.20 Alcohol dependence, uncomplicated (principal)
CPT/HCPCS: 80307; 80326; 80331; 80334; 80337; 80338; 80341; 80344; 80347; 80348; 80353; 80354; 80355; 80357; 80358; 80359; 80360; 80361; 80364; 80365; 80366; 80367; 80368; 80370; 80371; 80372; 80373; 80377; 82570; 83992